=== PATIENT | female | born 1945 | race Caucasian/White ===

== ENCOUNTER → 2018-01-19 13:17 | Outpatient (CLI) | payer MEDICARE, OTHER, SELFPAY ==
--- NOTE | 2018-01-19 | DI.RAD.S_ITS ---
PROCEDURE: FL BARIUM SWALLOW W SPEECH INDICATIONS: DYSPHAGIA. Hoarseness of voice. History of gastroesophageal reflux. Occasional coughing fits. TECHNIQUE: Examination was conducted in conjunction with speech pathology per standard protocol. In the lateral projection, filming was performed of the patient swallowing. AP projection filming was also performed with patient swallowing. COMPARISON: [facility], , BARIUM SWALLOW, 11/09/2016, 9:54. FINDINGS: Function: The oral preparatory phase appears normal, with proper containment. The subsequent oral propulsive phase, pharyngeal phase, and esophageal phase of swallowing also appear normal with all proffered substances. No laryngotracheal penetration or aspiration. No pathologic vallecular pooling. Minimal vallecular and piriform sinus residue immediately cleared with subsequent swallows. Morphology: A small cricopharyngeal bar was identified. No strictures were identified. IMPRESSION: #1. 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 Clinical followup recommended. #2. No laryngeal penetration or tracheal aspiration visualized on this exam. Please see concurrent speech pathology report for further details. Dictated by: Mina Orlando M.D. on 01/19/2018 at 15:49 Approved by: Mina Orlando M.D. on 01/19/2018 at 15:53
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
== END ==
PROVIDERS: PCP Family Medicine; Visit Provider Otolaryngology Facial Plastic Surgery
DX: R13.10 Dysphagia, unspecified (principal); R49.0 Dysphonia; K21.9 Gastro-esophageal reflux disease without esophagitis; R05 Cough
CPT/HCPCS: 74230; 92611

== ENCOUNTER 2018-01-29 09:30 | Outpatient (RCR) | payer MEDICARE, OTHER, SELFPAY ==
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
== END 2018-10-05 10:52 | disposition home or self-care (01) ==
LOC: SP 09:30
PROVIDERS: PCP Family Medicine; Visit Provider Family Medicine
DX: R13.10 Dysphagia, unspecified (principal)
CPT/HCPCS: 92507; 92526; 92610

== ENCOUNTER → 2018-08-01 10:51 | Outpatient (CLI) | payer MEDICARE, OTHER, SELFPAY ==
[2018-08-01 12:38] LABS: Blood Urea Nitrogen 9 mg/dL (7-17); Calcium 9.8 mg/dL (8.4-10.2); Carbon Dioxide 30 mmol/L (22-32); Chloride 97 mmol/L (98-107); Estimated Glomerular Filt Rate > 60.0 mL/min (>60); Glucose 122 mg/dL (80-110); HEMOLYSIS < 15 (0-50); Potassium 4.7 mmol/L (3.4-5.1); Sodium 138 mmol/L (137-145)
== END ==
PROVIDERS: PCP Family Medicine; Visit Provider Surgery
DX: R19.00 Intra-abdominal and pelvic swelling, mass and lump, unspecified site (principal)
CPT/HCPCS: 36415; 80048

== ENCOUNTER → 2018-08-06 08:44 | Outpatient (CLI) | payer MEDICARE, OTHER, SELFPAY ==
--- NOTE | 2018-08-06 08:46 | DI.CT.S_ITS ---
PROCEDURE: CT ABDOMEN PELVIS W CON INDICATIONS: Lump Abdominal Wall TECHNIQUE: After the administration of oral and intravenous contrast, 5 mm thick sections acquired from the diaphragms to the symphysis. 5 mm thick coronal and sagittal reformats were performed. For radiation dose reduction, the following was used: automated exposure control, adjustment of mA and/or kV according to patient size. COMPARISON: [facility], CT, ABDOMEN/PELVIS WITH CONTRAST, 09/09/2015, 10:44. FINDINGS: Image quality: Excellent. ABDOMEN: Lung bases: Lung bases are clear. Heart size is normal. Solid organs: Liver is normal in size and enhancement. Gallbladder appears surgically absent. Biliary system is non-dilated. Pancreas enhances normally. Spleen is normal in size and enhancement. No adrenal nodules. Kidneys are normal in size and enhancement, without hydronephrosis. There are several small simple renal cortical cysts, water in density. Peritoneum and bowel: Stomach, small bowel, and colon loops are normal in caliber and wall thickness. No free fluid or air. There is a rounded mass within the cecum just above the ileocecal valve, measuring up to 2.1 x 1.9 cm in maximal axial dimension seen on series 2 image 37 potentially a polyp. Nodes and vessels: No retroperitoneal or mesenteric adenopathy. Aorta and inferior vena cava are normal in caliber. Miscellaneous: There is a fat containing right paramedian periumbilical ventral hernia presumably containing omental fat, seen passing through the body wall on series 2 image 40, with a subtle internal fat density extending into the subcutaneous fat to the right of midline, which correlates well with the clinical history provided.. PELVIS: Genitourinary: Bladder wall thickness is normal. Miscellaneous: No inguinal hernias or adenopathy. At the margin of the right external iliac artery there is a peripherally calcified centrally nonenhancing ovoid structure that measures up to 4.4 cm in maximal axial dimension exactly equivalent to the prior appearance in that area. Bones: No suspicious bony lesions. No vertebral body compression fractures. IMPRESSION: 1. There is an unexpected finding of a masslike structure within the cecum just above the ileocecal valve, measuring soft tissue in radiodensity and measuring approximately 1.9 x 2.1 cm in maximal axial dimension suspicious for representing an intraluminal polyp. This is in apposition to the wall of the cecum, and no intraluminal stool is seen in in this area. 2. 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 3. Just to the right of the umbilicus area is a body wall defect which measures only 1.3 cm in maximal dimension through which omental fat passes into the subcutaneous fat as the apparent cause for the clinically reported asymmetry palpable in that area. Currently incarceration or strangulation does not appear associated. Dictated by: Allen Flores M.D. on 08/06/2018 at 12:44 Approved by: Allen Flores M.D. on 08/06/2018 at 13:01
== END ==
PROVIDERS: PCP Family Medicine; Visit Provider Surgery
DX: R22.2 Localized swelling, mass and lump, trunk (principal); N28.1 Cyst of kidney, acquired; K63.9 Disease of intestine, unspecified; I70.8 Atherosclerosis of other arteries; K43.9 Ventral hernia without obstruction or gangrene; Z90.49 Acquired absence of other specified parts of digestive tract
CPT/HCPCS: 74177; Q9967

== ENCOUNTER 2018-10-01 06:53 | Day surgery (SDC) | payer MEDICARE, OTHER, SELFPAY ==
--- NOTE | 2018-10-01 | PATH_ITS ---
[facility] Accession Number: [id number] . 01 Material submitted: . PART A: colon - COLON POLYP AT 15 CM PART B: colon - COLON POLYP AT 80 CM PART C: colon - COLON POLYP AT 90 CM . 02 Diagnosis: A. Colon Polyp at 15 cm: Tubular adenoma; negative for high-grade dysplasia. . B. Colon Polyp at 80 cm: Tubulovillous adenoma (2.0 cm in greatest dimension); negative for high-grade dysplasia. . C. Colon Polyp at 90 cm: Tubular adenoma; negative for high-grade dysplasia. [facility]/10/02/2018 . 02 Electronically signed: . Fatmata Perdomo MD, Pathologist NPI- [id number] . 01 Gross description: . Part A: COLON POLYP AT 15 CM: Received in formalin are 2 fragment(s) of martinez, soft tissue measuring 0.4 x 0.4 x 0.3 cm to 0.6 x 0.5 x 0.5 cm which is entirely submitted and submitted entirely in 1 cassette(s) Part B: COLON POLYP AT 80 CM: Received in formalin is 1 fragment(s) of martinez, soft tissue measuring 2.0 x 1.5 x 1.5 cm which is serially sectioned and submitted entirely in 3 cassette(s) Part C: COLON POLYP AT 90 CM: Received in formalin is 1 fragment(s) of martinez, soft tissue measuring 0.4 x 0.3 x 0.2 cm which is entirely submitted and submitted entirely in 1 cassette(s) /[facility] /[facility] . 02 Pathologist provided ICD-10: K63.5 . 02 CPT . 840658, [id number], 140622 Performed at: [address], [facility] [place] [id number] MD Pillo Nath MD Phone: [phone] Performed at: 02 [facility] [address] [place] [id number] MD Aminah Rosa MD Phone: [phone]
--- NOTE | 2018-10-01 07:26 | PM.HP.1 ---
History of Present Illness Chief complaint: 17244 Narrative: Patient presents for colorectal screening. She had a previous colonoscopy approximately 5 years ago recalls a poly otherwise unremarkable.. On further history denies any recent gastrointestinal symptoms. No nausea, vomiting, abdominal pain, loss of appetite, unexplained weight loss, change in bowel habits, diarrhea, constipation, melena, hematochezia, or bright red blood per rectum. Patient History Medical History (Updated 10/01/18 @ 08:43 by Doyle Hernandez MD) Atrial fibrillation (Acute) Diverticulosis (Acute) Diabetes (Chronic) Surgical History (Updated 10/01/18 @ 08:43 by Doyle Hernandez MD) History of cholecystectomy (Acute) Family History Brother Hypertension Cancer Sister Cancer Social History marital status: household members: spouse Smoking Status: Never smoker substance use type: does not use Family & Social History Family History Brother Hypertension Cancer Sister Cancer Social History: household members spouse Tobacco & Substance use: Smoking Status Never smoker Meds Home Medications Medication Instructions Recorded Confirmed Type alprazolam 0.5 mg tablet 0.5 mg PO .prn tab 10/05/17 10/01/18 History apixaban 5 mg tablet 5 mg PO BID 10/05/17 10/01/18 History atorvastatin 10 mg tablet 10 mg PO DAILY 10/05/17 10/01/18 History cholecalciferol (vitamin D3) 1,000 1,000 unit PO DAILY 10/05/17 10/01/18 History unit capsule flecainide 100 mg tablet 100 mg PO Q12H 10/05/17 10/01/18 History lidocaine 5 % topical patch 3 patch TOP DAILY each 10/05/17 10/01/18 History magnesium oxide 500 mg capsule 500 mg PO BID cap 10/05/17 10/01/18 History metformin ER 500 mg 500 mg PO DAILY 10/05/17 10/01/18 History tablet,extended release 24 hr metoprolol succinate ER 50 mg 50 mg PO DAILY 10/05/17 10/01/18 History tablet,extended release 24 hr metronidazole 1 % topical gel 1 applictn TOP DAILY 10/05/17 10/01/18 History vitamin B12 1,000 mcg-folic acid lozenge SL each 10/05/17 08/22/18 History 400 mcg sublingual lozenge Allergies Allergy/AdvReac Type Severity Reaction Status Date / Time acetaminophen [From VICODIN] AdvReac Unknown Verified 10/01/18 07:52 amitriptyline [AMITRIPTYLINE] AdvReac Unknown Verified 10/01/18 07:52 amlodipine [From NORVASC] AdvReac Unknown Verified 10/01/18 07:52 aspirin [ASPIRIN] AdvReac Unknown Verified 10/01/18 07:52 baclofen [BACLOFEN] AdvReac Unknown Verified 10/01/18 07:52 celecoxib [From CELEBREX] AdvReac Unknown Verified 10/01/18 07:52 codeine [CODEINE] AdvReac Unknown Verified 10/01/18 07:52 cyclobenzaprine AdvReac Unknown Verified 10/01/18 07:52 [From FLEXERIL] diazepam [DIAZEPAM] AdvReac Unknown Verified 10/01/18 07:52 dicyclomine [DICYCLOMINE] AdvReac Unknown Verified 10/01/18 07:52 diphenhydramine AdvReac Unknown Verified 10/01/18 07:52 [DIPHENHYDRAMINE] gabapentin [From NEURONTIN] AdvReac Unknown Verified 10/01/18 07:52 guaifenesin [GUAIFENESIN] AdvReac Unknown Verified 10/01/18 07:52 hydrocodone [From VICODIN] AdvReac Unknown Verified 10/01/18 07:52 hydromorphone [From DILAUDID] AdvReac Unknown Verified 10/01/18 07:52 ibuprofen [IBUPROFEN] AdvReac Unknown Verified 10/01/18 07:52 lansoprazole [LANSOPRAZOLE] AdvReac Unknown Verified 10/01/18 07:52 ondansetron AdvReac Unknown Verified 10/01/18 07:52 [From ZOFRAN ( HYDROCHLORIDE)] oxytocin [OXYTOCIN] AdvReac Unknown Verified 10/01/18 07:52 paroxetine [From PAXIL] AdvReac Unknown Verified 10/01/18 07:52 pindolol [PINDOLOL] AdvReac Unknown Verified 10/01/18 07:52 pregabalin [PREGABALIN] AdvReac Unknown Verified 10/01/18 07:52 promethazine [From PHENERGAN] AdvReac Unknown Verified 10/01/18 07:52 pyridostigmine AdvReac Unknown Unverified 08/22/18 09:43 [From MESTINON] ranitidine [From ZANTAC] AdvReac Unknown Verified 10/01/18 07:52 tizanidine [TIZANIDINE] AdvReac Unknown Verified 10/01/18 07:52 tramadol [TRAMADOL] AdvReac Unknown Verified 10/01/18 07:52 TRAZADONE AdvReac Unknown Uncoded 10/01/18 07:52 KRYSTLE BASE AdvReac Unknown Uncoded 10/01/18 07:52 Review of Systems Review of Systems All systems reviewed & are unremarkable except as noted in HPI and below Exam Narrative Exam Narrative: General-adult female no acute distress, well nourished HEENT-moist mucous membranes, no scleral icterus Neck-supple with full range of motion, no lymphadenopathy Chest- no labored respirations, clear to auscultation bilaterally Cardiac-regular rate and rhythm Abdomen-soft, nontender, non distended Extremities-no edema, warm well perfused Neurological-alert and oriented x 3. No focal deficits Skin-normal temperature and turgor, no rashes or ulcers Assessment & Plan (1) Screening for colorectal cancer: Current visit: Yes Status: Acute Assessment & Plan narrative: Patient is requiring colorectal screening. Colonoscopy is recommended. Technical details were discussed. Risks, benefits, alternatives explained. Risks including but not limited to sedation, aspiration, bleeding, pain, missed lesion, incomplete examination, need for further radiographic studies, colonic perforation, need for major abdominal surgery, and all attendant risks major surgery were discussed at length. All questions were answered to their satisfaction, and they voiced understanding.
[2018-10-01 08:01] VITALS: BP 163/72; PULSE 86; RESP 14; TEMP 36.6; O2SAT 100; BMI 47.8
[2018-10-01] MEDS: SODIUM CHLORIDE 0.9% 1,000 ML 200 ML IV (08:09)
[2018-10-01] MEDS: fentaNYL 250 MCG/5 ML INJ IV (09:45)
[2018-10-01] MEDS: MIDAZOLAM 5 MG/5 ML VIAL IV (09:45)
[2018-10-01 10:00] VITALS: BP 138/56; PULSE 72; RESP 17; TEMP 36.3; O2SAT 98
--- NOTE | 2018-10-01 10:02 | PM.OP.ENDO ---
Operative Date/Time/Diagnoses Date of procedure: 10/01/18 Time of procedure: 10:02 Pre-op diagnosis: screening colonoscopy. Last 5 yrs ago with polyp Post-op diagnosis: other (polyps) Procedure & Clinicians Study performed: colonoscopy Same procedure as scheduled: Yes Indications: screening colonoscopy previously polyp 5 yrs ago Surgeon: Doyle Hernandez Procedure Notes SCOAP/Timeout: performed Procedure in detail: A digital rectal exam was performed and was normal. The scope was carefully inserted into the rectum and advanced to the colon. A approximately 2 cm polyp was identified at 15 cm from the anal verge which was hot snared and removed. Site was found to be hemostatic. The colonoscope was then advanced remainder of the colon. At 80 cm there was a size polyp of several cm that was hot snared and then removed with the basket. I injected 1cc of ink at this site. The colonoscope was then reinserted and we reached the ileocecal valve. The scope was then carefully withdrawn. The remainder of the colon was notable for hemostasis at the previous biopsy sites. There was diverticulosis. In the final polyp was identified at 90 cm of small less than 1 cm which was biopsied. The scope was retroflexed within the rectum demonstrated grade 1 internal hemorrhoids. Scope was then withdrawn Scope withdrawal time: 9 Sedation minutes: 62 Findings: diverticulosis and polyp Specimen(s): other (polyp 15 cm, polyp 80 cm, polp 90cm) Complications: none Impression: concerning polyp at 80 cm Recommendations: Will call with biopsy results Disposition: same day surgery
[2018-10-01 10:05] VITALS: BP 133/54; PULSE 69; RESP 17; O2SAT 97
--- NOTE | 2018-10-01 10:17 | SUR.PHASEII ---
Dr. Hernandez spoke with the patient and her spouse, told her that she had a couple of large polyps and that he is concerned/tabooed one. Glasses returned to patient by spouse. She desires to rest a few minutes before preparing to leave.
[2018-10-01 10:20] VITALS: BP 143/68; PULSE 74; RESP 14; TEMP 36.9; O2SAT 97
--- NOTE | 2018-10-01 10:39 | SUR.PHASEII ---
States that she feels ready to go home. IV dc'd instructions reviewed. Her spouse assisting with dressing.
[2018-10-01 10:54] VITALS: BP 163/71; PULSE 73; RESP 15; TEMP 36.3; O2SAT 98
--- NOTE | 2018-10-01 13:48 | SUR.PHASEII ---
1058 To car in W/C by volunteer. Toleration PO well, resp unlabored. Stable, no questions, concerns.
== END 2018-10-01 10:58 | disposition home or self-care (01) ==
PROVIDERS: PCP Family Medicine; Visit Provider Surgery
PROC: 0DJD8ZZ Inspection of Lower Intestinal Tract, Via Natural or Artificial Opening Endoscopic (ICD-10-PCS; CPT 45378; principal; 2018-10-01 08:45)
DX: Z86.010 Personal history of colon polyps (principal); D12.6 Benign neoplasm of colon, unspecified; K57.30 Diverticulosis of large intestine without perforation or abscess without bleeding; K64.0 First degree hemorrhoids; I48.91 Unspecified atrial fibrillation; E11.9 Type 2 diabetes mellitus without complications; Z79.84 Long term (current) use of oral hypoglycemic drugs
CPT/HCPCS: 45385; 45381; 45380; 88305; 99152; 99153; J2250; J3010

== ENCOUNTER 2018-10-10 09:56 | Emergency (ER) | payer MEDICARE, OTHER, SELFPAY ==
[2018-10-10 10:33] VITALS: BP 150/84; PULSE 67; RESP 18; TEMP 36.6; O2SAT 97; BMI 47.6
[2018-10-10 10:44] LABS: Add Manual Diff / Slide Review NO; Basophils Absolute Auto 0 /uL (0-100); Basophils Percent Auto 0.2 % (0-2); Eosinophils Absolute Auto 100 /uL (0-450); Eosinophils Percent Auto 0.7 % (2-4); Hematocrit 34.2 % (36-46); Hemoglobin 11.3 g/dL (12.0-16.0); Lymphocytes Absolute Auto 1600 /uL (1100-4500); Lymphocytes Percent Auto 12.9 % (25-40); Mean Corpuscular HGB Conc 33.1 % (30-36); Mean Corpuscular Hemoglobin 27.6 PG (26-34); Mean Corpuscular Volume 83.4 fL (80-100); Monocytes Absolute Auto 500 /uL (0-900); Neutrophils Absolute Auto 10300 /uL (1500-7000); Neutrophils Percent Auto 82.2 % (50-75); Platelet Count 307 X10^3/uL (150-400); White Blood Cell Count 12.6 X10^3/uL (4.5-11.0)
[2018-10-10 10:45] LABS: INR 1.3 (0.9-1.3); Prothrombin Time 15.2 SECONDS (10.1-12.7)
[2018-10-10 10:48] LABS: PTT Partial Thromboplastin Tim 41 SECONDS (26.4-36.2)
[2018-10-10 10:51] LABS: Alanine Aminotransferase 7 IU/L (9-52); Albumin 4.2 g/dL (3.5-5.0); Albumin Globulin Ratio 1.2 (1.0-2.8); Alkaline Phosphatase 96 U/L (38-126); Aspartate Aminotransferase 19 IU/L (14-36); Bilirubin Total 0.5 mg/dL (0.2-1.3); Blood Urea Nitrogen 18 mg/dL (7-17); Calcium 9.5 mg/dL (8.4-10.2); Carbon Dioxide 26 mmol/L (22-32); Chloride 97 mmol/L (98-107); Estimated Glomerular Filt Rate > 60.0 mL/min (>60); Globulin 3.5 g/dL (1.7-4.1); Glucose 155 mg/dL (80-110); HEMOLYSIS 15 (0-50); Potassium 4.2 mmol/L (3.4-5.1); Sodium 137 mmol/L (137-145); Total Protein 7.7 g/dL (6.3-8.2)
[2018-10-10 11:00] VITALS: BP 139/46; PULSE 64; RESP 11; O2SAT 99
--- NOTE | 2018-10-10 11:40 | PC.NURSE ---
received report from [employer]cant[facility]. pt resting in bed. NAD. connected to cardiac monitoring. NSR 90's. reports she had colonoscopy 10/01 with 3 polyps removed. starting to have gross wilma red blood in stool by 10/06. Denies pain or abd discomfort. RR even and mildly labored with exertion. Yellow socks placed on pt and assisted to BR. ambulated with steady gait. RN witnessed gross about of wilma red blood in toilet with small amt clots. Stool occult charted as positive, made aware. pt type and screened. reports h/o afib and has started to take her eloquis again post procedure. H/H WNL at this time. aware. Pt skin PWD.
[2018-10-10 12:00] VITALS: BP 129/51; PULSE 67; RESP 19; O2SAT 100
[2018-10-10 12:30] VITALS: BP 102/36; PULSE 84; RESP 16; O2SAT 99
--- NOTE | 2018-10-10 12:43 | ED.GIBLEED ---
HPI - GI Bleed General Chief complaint: GI Bleed Stated complaint: rectal bleeding Time Seen by Provider: 10/10/18 12:26 Source: patient Mode of arrival: ambulatory Limitations: no limitations History of Present Illness HPI Narrative: 72-year-old female comes in complaining of bright red blood. Patient had a colonoscopy for colorectal cancer screening on 10/01/2018. Patient states they saw 3 polyps and removed them. She states she started having some smelly brownish stool on the . Patient states that she started having bright red blood on Monday, yesterday. She has not any abdominal pain. She does not feel like she is going to pass out she has felt occasionally little lightheaded but states is very mild. No chest pain, she has felt a little bit tired. She had some nausea earlier in the week but none recently. She has not noticed any melena in her stool. She had about 10 episodes of bowel movements with small to moderate amount of blood with no large clots. The patient states that they did remove 3 polyps which was confirmed in the medical record. She does take Eliquis, she does have a cardiac history, diabetes and fibromyalgia. Related Data Home Medications Medication Instructions Recorded Confirmed alprazolam 0.5 mg tablet 0.5 mg PO .ONCE tab 10/05/17 10/10/18 apixaban 5 mg tablet 5 mg PO BID 10/05/17 10/10/18 atorvastatin 10 mg tablet 10 mg PO DAILY 10/05/17 10/10/18 cholecalciferol (vitamin D3) 1,000 1,000 unit PO DAILY 10/05/17 10/10/18 unit capsule flecainide 100 mg tablet 100 mg PO Q12H 10/05/17 10/10/18 lidocaine 5 % topical patch 3 patch TOP DAILY each 10/05/17 10/10/18 magnesium oxide 500 mg capsule 500 mg PO TID cap 10/05/17 10/10/18 metformin 500 mg tablet,extended 1,000 mg PO BID 10/05/17 10/10/18 release 24 hr metoprolol succinate 50 mg 50 mg PO DAILY 10/05/17 10/10/18 tablet,extended release 24 hr metronidazole 1 % topical gel 1 applictn TOP DAILY 10/05/17 10/10/18 vitamin [id number] acid 1 giancarlo SUBLINGUAL DAILY 10/10/18 10/10/18 Allergies Allergy/AdvReac Type Severity Reaction Status Date / Time dicloxacillin Allergy Unknown Verified 10/10/18 12:25 acetaminophen [From VICODIN] AdvReac Unknown Verified 10/10/18 10:33 amitriptyline [AMITRIPTYLINE] AdvReac Unknown Verified 10/10/18 10:33 amlodipine [From NORVASC] AdvReac Unknown Verified 10/10/18 10:33 aspirin [ASPIRIN] AdvReac Unknown Verified 10/10/18 10:33 baclofen [BACLOFEN] AdvReac Unknown Verified 10/10/18 10:33 celecoxib [From CELEBREX] AdvReac Unknown Verified 10/10/18 10:33 codeine [CODEINE] AdvReac Unknown Verified 10/10/18 10:33 cyclobenzaprine AdvReac Unknown Verified 10/10/18 10:33 [From FLEXERIL] diazepam [DIAZEPAM] AdvReac Unknown Verified 10/10/18 10:33 dicyclomine [DICYCLOMINE] AdvReac Unknown Verified 10/10/18 10:33 diphenhydramine AdvReac Unknown Verified 10/10/18 10:33 [DIPHENHYDRAMINE] gabapentin [From NEURONTIN] AdvReac Unknown Verified 10/10/18 10:33 guaifenesin [GUAIFENESIN] AdvReac Unknown Verified 10/10/18 10:33 hydrocodone [From VICODIN] AdvReac Unknown Verified 10/10/18 10:33 hydromorphone [From DILAUDID] AdvReac Unknown Verified 10/10/18 10:33 ibuprofen [IBUPROFEN] AdvReac Unknown Verified 10/10/18 10:33 lansoprazole [LANSOPRAZOLE] AdvReac Unknown Verified 10/10/18 10:33 ondansetron AdvReac Unknown Verified 10/10/18 10:33 [From ZOFRAN ( HYDROCHLORIDE)] oxytocin [OXYTOCIN] AdvReac Unknown Verified 10/10/18 10:33 paroxetine [From PAXIL] AdvReac Unknown Verified 10/01/18 07:52 pindolol [PINDOLOL] AdvReac Unknown Verified 10/01/18 07:52 pregabalin [PREGABALIN] AdvReac Unknown Verified 10/01/18 07:52 promethazine [From PHENERGAN] AdvReac Unknown Verified 10/01/18 07:52 pyridostigmine AdvReac Unknown Unverified 08/22/18 09:43 [From MESTINON] ranitidine [From ZANTAC] AdvReac Unknown Verified 10/01/18 07:52 tizanidine [TIZANIDINE] AdvReac Unknown Verified 10/01/18 07:52 tramadol [TRAMADOL] AdvReac Unknown Verified 10/01/18 07:52 TRAZADONE AdvReac Unknown Uncoded 10/01/18 07:52 KRYSTLE BASE AdvReac Unknown Uncoded 10/01/18 07:52 Review of Systems Review of Systems ROS Unobtainable: All systems reviewed & are unremarkable except as noted in HPI and below PFSH Medical History Atrial fibrillation (Acute) Diabetes (Chronic) Diverticulosis (Acute) Surgical History History of cholecystectomy (Acute) Family History Brother Hypertension Cancer Sister Cancer Social History marital status: household members: spouse Smoking Status: Never smoker substance use type: does not use Family History Brother Hypertension Cancer Sister Cancer Social History marital status: household members: spouse Smoking Status: Never smoker substance use type: does not use Exam Narrative Exam Narrative: GENERAL: Alert and oriented x three, obese female in no acute distress. HEENT: Head normocephalic, atraumatic, EOMI, pupils reactive, face symmetric, moist mucous membranes NECK: Supple, full range of motion CARDIOVASCULAR: Regular rate and rhythm without murmurs, rubs or gallops. RESPIRATORY: Breath sounds equal bilaterally, no wheezes rales or rhonchi. ABDOMEN: Soft, nontender. Normoactive bowel sounds all 4 quadrants. No guarding or rebound, rigidity, no mass. Patient had bright red blood in the toilet in the emergency department. : No CVA tenderness EXTREMITIES: Normal range of motion, no clubbing or edema. Neurovascularly intact NEUROLOGICAL: Cranial nerves II through XII grossly intact. Moving all extremities SKIN: Warm, dry, no petechiae, no rashes or lesions. Initial Vital Signs Initial Vital Signs: Vital Signs Temperature 97.8 F 10/10/18 10:33 Pulse Rate 67 10/10/18 10:33 Respiratory Rate 18 10/10/18 10:33 Blood Pressure 150/84 H 10/10/18 10:33 Pulse Oximetry 97 10/10/18 10:33 Course Orders Ordered: ED Orders 10/10/18 12:50 Hemoglobin and Hematocrit Stat Vital Signs Vital signs: Vital Signs - 8 hr 10/10/18 12:00 10/10/18 12:30 10/10/18 13:06 Pulse Rate 67 84 Pulse Rate [Orthostatic Lying] 58 L Pulse Rate [Orthostatic Sitting] 72 Pulse Rate [Orthostatic Standing] 78 Respiratory Rate 19 16 Blood Pressure [Orthostatic Lying] 114/51 L Blood Pressure [Orthostatic Sitting] 138/52 L Blood Pressure [Orthostatic Standing] 133/73 Blood Pressure [Right Arm] 129/51 L 102/36 L Pulse Oximetry 100 99 MDM - GI Bleed Lab Data Attestation: I reviewed the patient's lab results. Result diagrams: 10/10/18 12:50 10/10/18 10:30 Labs: Lab Results 10/10/18 10/10/18 10/10/18 Range/Units 10:30 10:30 10:30 WBC 12.6 H (4.5-11.0) X10^3/uL RBC 4.10 (4.0-5.2) X10^6/uL Hgb 11.3 L (12.0-16.0) g/dL Hct 34.2 L (36-46) % MCV 83.4 (80-100) fL MCH 27.6 (26-34) PG MCHC 33.1 (30-36) % RDW 14.0 (11.6-14.8) % Plt Count 307 (150-400) X10^3/uL Neut % (Auto) 82.2 H (50-75) % Lymph % (Auto) 12.9 L (25-40) % [place] % (Auto) 4.0 (3-14) % Eos % (Auto) 0.7 L (2-4) % Baso % (Auto) 0.2 (0-2) % Neut # (Auto) 91644 H (4669-9434) /uL Lymph # (Auto) 1600 (2677-0392) /uL [place] # (Auto) 500 (0-900) /uL Eos # (Auto) 100 (0-450) /uL Baso # (Auto) 0 (0-100) /uL PT 15.2 H (10.1-12.7) SECONDS INR 1.3 (0.9-1.3) APTT 41 H (26.4-36.2) SECONDS Sodium 137 (137-145) mmol/L Potassium 4.2 (3.4-5.1) mmol/L Chloride 97 L (98-107) mmol/L Carbon Dioxide 26 (22-32) mmol/L BUN 18 H (7-17) mg/dL Creatinine 0.60 (0.52-1.04) mg/dL Estimated GFR > 60.0 (>60) mL/min BUN/Creatinine Ratio 30.0 H (6-22) Glucose 155 H (80-110) mg/dL Calcium 9.5 (8.4-10.2) mg/dL Total Bilirubin 0.5 (0.2-1.3) mg/dL AST 19 (14-36) IU/L ALT 7 L (9-52) IU/L Alkaline Phosphatase 96 (38-126) U/L Total Protein 7.7 (6.3-8.2) g/dL Albumin 4.2 (3.5-5.0) g/dL Globulin 3.5 (1.7-4.1) g/dL Albumin/Globulin Ratio 1.2 (1.0-2.8) 10/10/18 Range/Units 12:50 WBC (4.5-11.0) X10^3/uL RBC (4.0-5.2) X10^6/uL Hgb 10.4 L (12.0-16.0) g/dL Hct 31.3 L (36-46) % MCV (80-100) fL MCH (26-34) PG MCHC (30-36) % RDW (11.6-14.8) % Plt Count (150-400) X10^3/uL Neut % (Auto) (50-75) % Lymph % (Auto) (25-40) % [place] % (Auto) (3-14) % Eos % (Auto) (2-4) % Baso % (Auto) (0-2) % Neut # (Auto) (8191-7597) /uL Lymph # (Auto) (7917-8634) /uL [place] # (Auto) (0-900) /uL Eos # (Auto) (0-450) /uL Baso # (Auto) (0-100) /uL PT (10.1-12.7) SECONDS INR (0.9-1.3) APTT (26.4-36.2) SECONDS Sodium (137-145) mmol/L Potassium (3.4-5.1) mmol/L Chloride (98-107) mmol/L Carbon Dioxide (22-32) mmol/L BUN (7-17) mg/dL Creatinine (0.52-1.04) mg/dL Estimated GFR (>60) mL/min BUN/Creatinine Ratio (6-22) Glucose (80-110) mg/dL Calcium (8.4-10.2) mg/dL Total Bilirubin (0.2-1.3) mg/dL AST (14-36) IU/L ALT (9-52) IU/L Alkaline Phosphatase (38-126) U/L Total Protein (6.3-8.2) g/dL Albumin (3.5-5.0) g/dL Globulin (1.7-4.1) g/dL Albumin/Globulin Ratio (1.0-2.8) Point of Care Testing Stool Occult Blood Positive MDM Narrative Medical decision making narrative: Patient has painless bright red blood after colonoscopy on the while taking Eliquis. I spoke with the on-call surgeon, Dr. Garcia who recommend stopping the Eliquis and having her follow up. At patient's hematocrit was 34 we did do a repeat that was 31 but patient has been able to ambulate back and forth to the bathroom without issue. Orthostatics show her heart rate increased by 20 points but blood pressure also increased. Patient had 1 episode of hypotension while she was resting. Otherwise she has been asymptomatic in the department except for 2 or 3 episodes of bright red blood. Patient feels comfortable returning home and following up she has ambulated in the department several times without issue. Discharge Plan Departure Patient Disposition: Home Clinical Impression: BRBPR (bright red blood per rectum) Discharge Date/Time: 10/10/18 14:02 Instructions: Gastrointestinal Bleeding Activity Restrictions/Additional Instructions: Follow up with your your surgical team in the next 3-5 days. Stop your Eliquis while you are actively bleeding. You may continue your other home medications as prescribed. Return to the emergency department for new or worsening symptoms, increasing bright red blood from rectum, abdominal pain, large clots, if you feel like going to pass out, new chest pain, new shortness of breath, persistent nausea or, new swelling in her lower extremities or other new or concerning symptoms. Prescriptions: No Action alprazolam 0.5 mg tablet 0.5 mg PO .ONCE RF: 0 apixaban 5 mg tablet 5 mg PO BID RF: 0 atorvastatin 10 mg tablet 10 mg PO DAILY RF: 0 cholecalciferol (vitamin D3) 1,000 unit capsule 1,000 unit PO DAILY RF: 0 flecainide 100 mg tablet 100 mg PO Q12H RF: 0 metformin [Glucophage XR] 500 mg tablet extended release 24 hr 1,000 mg PO BID RF: 0 lidocaine [Lidoderm] 5 % adhesive patch,medicated 3 patch TOP DAILY RF: 0 magnesium oxide 500 mg capsule 500 mg PO TID RF: 0 metoprolol succinate 50 mg tablet extended release 24 hr 50 mg PO DAILY RF: 0 metronidazole [Metrogel] 1 % gel 1 applictn TOP DAILY RF: 0 vitamin [id number] acid 1,000-400 mcg Lozenge 1 giancarlo SUBLINGUAL DAILY RF: 0 Referrals: Daniel Bob MD [Primary Care Provider] - Doyle Hernandez MD [Physician] -
[2018-10-10 13:00] LABS: Hematocrit 31.3 % (36-46); Hemoglobin 10.4 g/dL (12.0-16.0)
[2018-10-10 13:06] VITALS: BP 114/51; BP 133/73; BP 138/52; PULSE 58; PULSE 72; PULSE 78
--- NOTE | 2018-10-10 14:00 | PC.NURSE ---
IV dc'd. Pt DC'd to home abulated out of ed with steady gait. advised on signs and sx of when to return and verbalized understanding.
== END 2018-10-10 14:02 | disposition home or self-care (01) ==
PROVIDERS: Internal Medicine; Emergency Provider Emergency Medicine; PCP Family Medicine
DX: K62.5 Hemorrhage of anus and rectum (principal)
CPT/HCPCS: 36415; 36591; 80053; 82272; 85014; 85018; 85025; 85610; 85730; 93005; 99283; 99284

== ENCOUNTER 2020-01-02 11:53 | Inpatient (IN) | payer MEDICARE, OTHER, SELFPAY ==
[2020-01-02] VITALS (17 sets, daily range): BP systolic 144–216; BP diastolic 65–91; PULSE 58–86; RESP 14–39; TEMP 36.2–36.6; O2SAT 97–100; BMI 48.9; BMI 48.2
--- NOTE | 2020-01-02 12:44 | PC.NURSE ---
3 unsuccessful IV attempts from this RN
--- NOTE | 2020-01-02 14:02 | PC.NURSE ---
Assisted pt up to [facility]. Pt had large watery stool, no bright red blood visualized. Foul smelling. Guiac positive.
--- NOTE | 2020-01-02 14:13 | PC.NURSE ---
Dr Rachel at bedside to place US guided IV. Lab at bedside to draw labs
[2020-01-02 14:30] LABS: Add Manual Diff / Slide Review NO; Basophils Absolute Auto 0 /uL (0-100); Basophils Percent Auto 0.2 % (0-2); Eosinophils Absolute Auto 100 /uL (0-450); Eosinophils Percent Auto 0.8 % (2-4); Hematocrit 34.1 % (36-46); Hemoglobin 11.2 g/dL (12.0-16.0); Lymphocytes Absolute Auto 1200 /uL (1100-4500); Lymphocytes Percent Auto 10.8 % (25-40); Mean Corpuscular Hemoglobin 27.3 PG (26-34); Mean Corpuscular Volume 82.6 fL (80-100); Monocytes Absolute Auto 400 /uL (0-900); Monocytes Percent Auto 4.1 % (3-14); Neutrophils Absolute Auto 9200 /uL (1500-7000); Neutrophils Percent Auto 84.1 % (50-75); Platelet Count 299 X10^3/uL (150-400); Red Blood Cell Count 4.12 X10^6/uL (4.0-5.2); Red Cell Distribution Width 14.4 % (11.6-14.8); White Blood Cell Count 10.9 X10^3/uL (4.5-11.0)
[2020-01-02 14:37] LABS: INR 1.4 (0.9-1.3); Prothrombin Time 16.1 SECONDS (10.1-12.7)
[2020-01-02 14:39] LABS: PTT Partial Thromboplastin Tim 46 SECONDS (26.4-36.2)
[2020-01-02 14:45] LABS: Alanine Aminotransferase 14 IU/L (<35); Albumin 4.4 g/dL (3.5-5.0); Albumin Globulin Ratio 1.1 (1.0-2.8); Alkaline Phosphatase 120 U/L (38-126); Aspartate Aminotransferase 27 IU/L (14-36); BUN Creatinine Ratio 11.4 (6-22); Bilirubin Total 0.6 mg/dL (0.2-1.3); Blood Urea Nitrogen 8 mg/dL (7-17); Calcium 9.7 mg/dL (8.4-10.2); Carbon Dioxide 28 mmol/L (22-32); Chloride 99 mmol/L (98-107); Estimated Glomerular Filt Rate > 60.0 mL/min (>60); Globulin 3.9 g/dL (1.7-4.1); Glucose 121 mg/dL (80-110); HEMOLYSIS < 15 (0-50); Lactate (Lactic Acid) 1.8 mmol/L (0.7-2.1); Sodium 134 mmol/L (137-145); Total Protein 8.3 g/dL (6.3-8.2)
--- NOTE | 2020-01-02 14:57 | ED.GIBLEED ---
HPI - GI Bleed General Chief complaint: GI Bleed Stated complaint: Bleeding from rectum-x4 days Time Seen by Provider: 01/02/20 12:35 Source: patient Mode of arrival: Ambulatory Limitations: no limitations History of Present Illness HPI Narrative: Patient is a 74-year-old female history of atrial fibrillation on Eliquis presenting with rectal bleeding ongoing for least the last 4 days. States it started out small but has progressively gotten bigger she in fact has had a very large bloody bowel movement in the ED. She is hemodynamically stable in fact she is hypertensive. She denies any dizziness slightly lightheadedness or shortness of breath. She does have a Zio patch as well which was placed today. She has no abdominal cramping. Related Data Home Medications Medication Instructions Recorded Confirmed apixaban 5 mg tablet 5 mg PO BID 10/05/17 01/02/20 atorvastatin 10 mg tablet 10 mg PO DAILY 10/05/17 01/02/20 cholecalciferol (vitamin D3) 25 1,000 unit PO DAILY 10/05/17 01/02/20 mcg (1,000 unit) capsule flecainide 100 mg tablet 50 mg PO Q12H 10/05/17 01/02/20 lidocaine 5 % topical patch 3 patch TOP DAILY each 10/05/17 01/02/20 magnesium oxide 500 mg capsule 1,000 mg PO TID cap 10/05/17 01/02/20 metformin 500 mg tablet,extended 1,000 mg PO BID 10/05/17 01/02/20 release 24 hr metoprolol succinate 50 mg 25 mg PO DAILY 10/05/17 01/02/20 tablet,extended release 24 hr metronidazole 1 % topical gel 1 applictn TOP DAILY 10/05/17 01/02/20 vitamin D12-ywfrw acid 1 giancarlo SUBLINGUAL DAILY 10/10/18 01/02/20 lisinopril 10 mg BID 01/02/20 01/02/20 Allergies Allergy/AdvReac Type Severity Reaction Status Date / Time dicloxacillin Allergy Unknown Verified 01/02/20 12:07 acetaminophen [From VICODIN] AdvReac Unknown Verified 01/02/20 12:07 amitriptyline [AMITRIPTYLINE] AdvReac Unknown Verified 01/02/20 12:07 amlodipine [From NORVASC] AdvReac Unknown Verified 01/02/20 12:07 aspirin [ASPIRIN] AdvReac Unknown Verified 01/02/20 12:07 baclofen [BACLOFEN] AdvReac Unknown Verified 01/02/20 12:07 celecoxib [From CELEBREX] AdvReac Unknown Verified 01/02/20 12:07 codeine [CODEINE] AdvReac Unknown Verified 01/02/20 12:07 cyclobenzaprine AdvReac Unknown Verified 01/02/20 12:07 [From FLEXERIL] diazepam [DIAZEPAM] AdvReac Unknown Verified 01/02/20 12:07 dicyclomine [DICYCLOMINE] AdvReac Unknown Verified 01/02/20 12:07 diphenhydramine AdvReac Unknown Verified 01/02/20 12:07 [DIPHENHYDRAMINE] gabapentin [From NEURONTIN] AdvReac Unknown Verified 01/02/20 12:07 guaifenesin [GUAIFENESIN] AdvReac Unknown Verified 01/02/20 12:07 hydrocodone [From VICODIN] AdvReac Unknown Verified 01/02/20 12:07 hydromorphone [From DILAUDID] AdvReac Unknown Verified 01/02/20 12:07 ibuprofen [IBUPROFEN] AdvReac Unknown Verified 01/02/20 12:07 lansoprazole [LANSOPRAZOLE] AdvReac Unknown Verified 01/02/20 12:07 ondansetron AdvReac Unknown Verified 01/02/20 12:07 [From ZOFRAN ( HYDROCHLORIDE)] oxytocin [OXYTOCIN] AdvReac Unknown Verified 01/02/20 12:07 paroxetine [From PAXIL] AdvReac Unknown Verified 01/02/20 12:07 pindolol [PINDOLOL] AdvReac Unknown Verified 01/02/20 12:07 pregabalin [PREGABALIN] AdvReac Unknown Verified 01/02/20 12:07 promethazine [From PHENERGAN] AdvReac Unknown Verified 01/02/20 12:07 pyridostigmine AdvReac Unknown Verified 01/02/20 12:07 [From MESTINON] ranitidine [From ZANTAC] AdvReac Unknown Verified 01/02/20 12:07 tizanidine [TIZANIDINE] AdvReac Unknown Verified 01/02/20 12:07 tramadol [TRAMADOL] AdvReac Unknown Verified 01/02/20 12:07 TRAZADONE AdvReac Unknown Uncoded 10/18/18 09:12 KRYSTLE BASE AdvReac Unknown Uncoded 10/18/18 09:12 Review of Systems Review of Systems Narrative: GENERAL: Denies chills, fatigue, malaise, fever, sweats, travel HEENT: Denies sinus pain, ear pain, sore throat, difficulty swallowing, neck pain RESPIRATORY: Denies dyspnea, cough, wheezing, hemoptysis, sputum. CARDIOVASCULAR: Denies chest pain, palpitations, orthopnea, edema GASTROINTESTINAL: See HPI : Denies dysuria, frequency, incontinence, hematuria, urinary retention, flank pain. MUSCULOSKELETAL: Denies weakness, joint pain, or bony pain SKIN: No rash, no erythema, no pruritus NEUROLOGIC: Denies weakness, dizziness, headache, numbness, change in speech, confusion PSYCHIATRIC: No concerning psychosocial issues. 12 point review of systems is negative except for those stated above and HPI Patient History Medical History (Updated 01/02/20 @ 18:29 by Dary Rachel DO) Atrial fibrillation Diabetes Diverticulosis Surgical History History of cholecystectomy Family History Brother Hypertension Cancer Sister Cancer Social History marital status: household members: spouse Smoking Status: Never smoker alcohol intake: never substance use type: does not use Smoking Status: Never smoker Substance Use Type: does not use Exam Initial Vital Signs Initial Vital Signs: Vital Signs Pulse Rate 86 01/02/20 12:03 Pulse Oximetry 99 01/02/20 12:03 GENERAL: Well-appearing, well-nourished and in no acute distress. HEENT: Head atraumatic,EOMI, pupils reactive, face symmetric, moist mucous membranes CARDIOVASCULAR: Regular rate and rhythm without murmurs, rubs or gallops. RESPIRATORY: Breath sounds equal bilaterally, no wheezes rales or rhonchi. ABDOMEN: Soft, nontender. Normoactive bowel sounds all 4 quadrants. No guarding or rebound. RECTAL: Hemoccult-positive, no hemorrhoids, nontender : No CVA tenderness EXTREMITIES: Normal range of motion, no clubbing or edema. Neurovascularly intact NEUROLOGICAL: Alert and oriented x4.Normal gait and speech. SKIN: Warm, dry, no laceration, no petechiae, no rashes or lesions. Course Orders Ordered: ED Orders 01/02/20 12:37 EKG-12 Lead Stat 01/02/20 14:19 Complete Blood Count AUTO DIFF Stat Comprehensive Metabolic Panel Stat Lactate (Lactic Acid) Stat Partial Thromboplastin Time Stat Prothrombin Time INR Stat Type and Screen Stat Influenza Virus Vaccine (Influenza Hd Vaccine 0.7 Ml Syringe) 0.7 ml IM .ONCE ONE Stop: 01/03/20 09:01 Vital Signs Vital signs: Vital Signs - 8 hr 01/02/20 12:03 01/02/20 12:05 01/02/20 12:06 Temperature Pulse Rate 86 85 81 Respiratory Rate 17 Blood Pressure 216/91 H 200/85 H Pulse Oximetry 99 100 100 01/02/20 12:07 01/02/20 12:13 01/02/20 12:30 Temperature 97.8 F Pulse Rate 78 76 76 Respiratory Rate 18 17 14 Blood Pressure 200/85 H 166/72 H Pulse Oximetry 100 99 99 01/02/20 13:00 01/02/20 13:30 01/02/20 14:00 Temperature Pulse Rate 75 72 72 Respiratory Rate 18 17 20 Blood Pressure Pulse Oximetry 100 100 01/02/20 14:25 01/02/20 14:30 01/02/20 15:00 Temperature Pulse Rate 70 69 70 Respiratory Rate 17 19 20 Blood Pressure 154/67 H 151/66 H 151/67 H Pulse Oximetry 100 99 99 MDM - GI Bleed Lab Data Attestation: I reviewed the patient's lab results. Result diagrams: 01/02/20 14:19 01/02/20 14:19 Labs: Lab Results 01/02/20 01/02/20 01/02/20 Range/Units 14:19 14:19 14:19 WBC 10.9 (4.5-11.0) X10^3/uL RBC 4.12 (4.0-5.2) X10^6/uL Hgb 11.2 L (12.0-16.0) g/dL Hct 34.1 L (36-46) % MCV 82.6 (80-100) fL MCH 27.3 (26-34) PG MCHC 33.0 (30-36) % RDW 14.4 (11.6-14.8) % Plt Count 299 (150-400) X10^3/uL Neut % (Auto) 84.1 H (50-75) % Lymph % (Auto) 10.8 L (25-40) % [place] % (Auto) 4.1 (3-14) % Eos % (Auto) 0.8 L (2-4) % Baso % (Auto) 0.2 (0-2) % Neut # (Auto) 9200 H (7289-6692) /uL Lymph # (Auto) 1200 (4777-9600) /uL [place] # (Auto) 400 (0-900) /uL Eos # (Auto) 100 (0-450) /uL Baso # (Auto) 0 (0-100) /uL PT 16.1 H (10.1-12.7) SECONDS INR 1.4 H (0.9-1.3) APTT 46 H D (26.4-36.2) SECONDS Sodium (137-145) mmol/L Potassium (3.4-5.1) mmol/L Chloride (98-107) mmol/L Carbon Dioxide (22-32) mmol/L BUN (7-17) mg/dL Creatinine (0.52-1.04) mg/dL Estimated GFR (>60) mL/min BUN/Creatinine Ratio (6-22) Glucose (80-110) mg/dL Lactate 1.8 (0.7-2.1) mmol/L Calcium (8.4-10.2) mg/dL Total Bilirubin (0.2-1.3) mg/dL AST (14-36) IU/L ALT (<35) IU/L Alkaline Phosphatase (38-126) U/L Total Protein (6.3-8.2) g/dL Albumin (3.5-5.0) g/dL Globulin (1.7-4.1) g/dL Albumin/Globulin Ratio (1.0-2.8) Blood Type Antibody Screen 01/02/20 01/02/20 Range/Units 14:19 14:19 WBC (4.5-11.0) X10^3/uL RBC (4.0-5.2) X10^6/uL Hgb (12.0-16.0) g/dL Hct (36-46) % MCV (80-100) fL MCH (26-34) PG MCHC (30-36) % RDW (11.6-14.8) % Plt Count (150-400) X10^3/uL Neut % (Auto) (50-75) % Lymph % (Auto) (25-40) % [place] % (Auto) (3-14) % Eos % (Auto) (2-4) % Baso % (Auto) (0-2) % Neut # (Auto) (9150-9938) /uL Lymph # (Auto) (1775-4770) /uL [place] # (Auto) (0-900) /uL Eos # (Auto) (0-450) /uL Baso # (Auto) (0-100) /uL PT (10.1-12.7) SECONDS INR (0.9-1.3) APTT (26.4-36.2) SECONDS Sodium 134 L (137-145) mmol/L Potassium 4.0 (3.4-5.1) mmol/L Chloride 99 (98-107) mmol/L Carbon Dioxide 28 (22-32) mmol/L BUN 8 (7-17) mg/dL Creatinine 0.70 (0.52-1.04) mg/dL Estimated GFR > 60.0 (>60) mL/min BUN/Creatinine Ratio 11.4 (6-22) Glucose 121 H (80-110) mg/dL Lactate (0.7-2.1) mmol/L Calcium 9.7 (8.4-10.2) mg/dL Total Bilirubin 0.6 (0.2-1.3) mg/dL AST 27 (14-36) IU/L ALT 14 (<35) IU/L Alkaline Phosphatase 120 (38-126) U/L Total Protein 8.3 H (6.3-8.2) g/dL Albumin 4.4 (3.5-5.0) g/dL Globulin 3.9 (1.7-4.1) g/dL Albumin/Globulin Ratio 1.1 (1.0-2.8) Blood Type O Positive Antibody Screen Negative Point of Care Testing Stool Occult Blood Positive MDM Narrative Medical decision making narrative: Patient is an extremely hard IV start I have looked myself with the ultrasound she is extremely small veins the PICC line nurse is on their way from [place]. Luckily hemodynamically stable no need for central line at this time. She did have 1 large bloody bowel movement in the ED. I spoke with Dr. Pedro surgery agrees to consult Dr. dejesus accepts Discharge Plan Departure Patient Disposition: Admitted As Inpatient Clinical Impression: Acute GI bleeding Admit Date/Time: 01/02/20 15:15 Admit Provider: Angelica Nieto
--- NOTE | 2020-01-02 18:28 | P.CONS_ITS ---
History of Present Illness Consult details Date Patient Seen: 01/02/20 Time Patient Seen: 15:30 Chief complaint: Bleeding from rectum x4 days Reason for consult: GI bleed Requesting provider: Dary Rachel Narrative: This is a 74-year-old woman with history of DM2, HTN, severe morbid obseity, and atrial fibrillation on Eliquis who came into the ER today with rectal bleeding the past 4 days. She states it started out as a small amount but has progressively increased. She did have a large bloody bowel movement in the ER today. Her last colonoscopy was in September [address] Hernandez. She was found to have two large colon polyps which were removed, diverticulosis, and small grade 1 hemorrhoids. She denies any dizziness slightly lightheadedness or shortness of breath. She has a a Zio patch on which was placed today. She has no abdominal cramping, no rectal pain, no sense of swelling or rectal prolapse. No nasea, vomiting, fevers. ROS: GENERAL: Denies chills, fatigue, malaise, fever, sweats, travel HEENT: Denies sinus pain, ear pain, sore throat, difficulty swallowing, neck pain RESPIRATORY: Denies dyspnea, cough, wheezing, hemoptysis, sputum. CARDIOVASCULAR: Denies chest pain, palpitations, orthopnea, edema GASTROINTESTINAL: See HPI : Denies dysuria, frequency, incontinence, hematuria, urinary retention, flank pain. MUSCULOSKELETAL: Denies weakness, joint pain, or bony pain SKIN: No rash, no erythema, no pruritus NEUROLOGIC: Denies weakness, dizziness, headache, numbness, change in speech, confusion PSYCHIATRIC: No concerning psychosocial issues. 12 point review of systems is negative except for those stated above and HPI PE: GENERAL: Well groomed and cooperative. Severe morbid obesity; Appears stated age. Answers questions promptly and appropriately. Vital signs noted. HENT: Normocephalic, atraumatic. Hearing intact. Oral mucosa is pink and moist. EYES: Conjunctiva pink, sclera white, no periorbital swelling. CARDIOVASCULAR: Regular rate. No pedal edema. RESPIRATORY: Non-tachypneic, breathing comfortably on room air. GASTROINTESTINAL: Abdomen soft and non-distended Perianal: no stool staining, no gross blood, no external hemorrhoids, no evidence of prolapse. GENITALURINARY: No flank tenderness. MUSCULOSKELETAL: Equal tone and mass bilaterally. SKIN: Warm, dry, soft, appropriate color for ethnicity. No other lesions, rashes, or wounds. NEURO: Alert and Oriented X 3. No gross sensory deficits, or cognitive issues. PSYCH: Appropriate mood and affect, normal intellect Meds Home Medications and Allergies Home Medications Medication Instructions Recorded Confirmed Type apixaban 5 mg tablet 5 mg PO BID 10/05/17 01/02/20 History atorvastatin 10 mg tablet 10 mg PO DAILY 10/05/17 01/02/20 History cholecalciferol (vitamin D3) 25 1,000 unit PO DAILY 10/05/17 01/02/20 History mcg (1,000 unit) capsule flecainide 100 mg tablet 50 mg PO Q12H 10/05/17 01/02/20 History lidocaine 5 % topical patch 3 patch TOP DAILY each 10/05/17 01/02/20 History magnesium oxide 500 mg capsule 1,000 mg PO TID cap 10/05/17 01/02/20 History metformin 500 mg tablet,extended 1,000 mg PO BID 10/05/17 01/02/20 History release 24 hr metoprolol succinate 50 mg 25 mg PO DAILY 10/05/17 01/02/20 History tablet,extended release 24 hr metronidazole 1 % topical gel 1 applictn TOP DAILY 10/05/17 01/02/20 History vitamin I38-[id number] acid 1 giancarlo SUBLINGUAL DAILY 10/10/18 01/02/20 History lisinopril 10 mg BID 01/02/20 01/02/20 History Allergies Allergy/AdvReac Type Severity Reaction Status Date / Time dicloxacillin Allergy Unknown Verified 01/02/20 12:07 acetaminophen [From VICODIN] AdvReac Unknown Verified 01/02/20 12:07 amitriptyline [AMITRIPTYLINE] AdvReac Unknown Verified 01/02/20 12:07 amlodipine [From NORVASC] AdvReac Unknown Verified 01/02/20 12:07 aspirin [ASPIRIN] AdvReac Unknown Verified 01/02/20 12:07 baclofen [BACLOFEN] AdvReac Unknown Verified 01/02/20 12:07 celecoxib [From CELEBREX] AdvReac Unknown Verified 01/02/20 12:07 codeine [CODEINE] AdvReac Unknown Verified 01/02/20 12:07 cyclobenzaprine AdvReac Unknown Verified 01/02/20 12:07 [From FLEXERIL] diazepam [DIAZEPAM] AdvReac Unknown Verified 01/02/20 12:07 dicyclomine [DICYCLOMINE] AdvReac Unknown Verified 01/02/20 12:07 diphenhydramine AdvReac Unknown Verified 01/02/20 12:07 [DIPHENHYDRAMINE] gabapentin [From NEURONTIN] AdvReac Unknown Verified 01/02/20 12:07 guaifenesin [GUAIFENESIN] AdvReac Unknown Verified 01/02/20 12:07 hydrocodone [From VICODIN] AdvReac Unknown Verified 01/02/20 12:07 hydromorphone [From DILAUDID] AdvReac Unknown Verified 01/02/20 12:07 ibuprofen [IBUPROFEN] AdvReac Unknown Verified 01/02/20 12:07 lansoprazole [LANSOPRAZOLE] AdvReac Unknown Verified 01/02/20 12:07 ondansetron AdvReac Unknown Verified 01/02/20 12:07 [From ZOFRAN ( HYDROCHLORIDE)] oxytocin [OXYTOCIN] AdvReac Unknown Verified 01/02/20 12:07 paroxetine [From PAXIL] AdvReac Unknown Verified 01/02/20 12:07 pindolol [PINDOLOL] AdvReac Unknown Verified 01/02/20 12:07 pregabalin [PREGABALIN] AdvReac Unknown Verified 01/02/20 12:07 promethazine [From PHENERGAN] AdvReac Unknown Verified 01/02/20 12:07 pyridostigmine AdvReac Unknown Verified 01/02/20 12:07 [From MESTINON] ranitidine [From ZANTAC] AdvReac Unknown Verified 01/02/20 12:07 tizanidine [TIZANIDINE] AdvReac Unknown Verified 01/02/20 12:07 tramadol [TRAMADOL] AdvReac Unknown Verified 01/02/20 12:07 TRAZADONE AdvReac Unknown Uncoded 10/18/18 09:12 KRYSTLE BASE AdvReac Unknown Uncoded 10/18/18 09:12 Exam Vital Signs (past 8 hours): - 01/02/20 12:03 01/02/20 12:05 01/02/20 12:06 Temperature Pulse Rate 86 85 81 Respiratory Rate 17 Blood Pressure 216/91 H 200/85 H Pulse Oximetry 99 100 100 01/02/20 12:07 01/02/20 12:13 01/02/20 12:30 Temperature 97.8 F Pulse Rate 78 76 76 Respiratory Rate 18 17 14 Blood Pressure 200/85 H 166/72 H Pulse Oximetry 100 99 99 01/02/20 13:00 01/02/20 13:30 01/02/20 14:00 Temperature Pulse Rate 75 72 72 Respiratory Rate 18 17 20 Blood Pressure Pulse Oximetry 100 100 01/02/20 14:25 01/02/20 14:30 01/02/20 15:00 Temperature Pulse Rate 70 69 70 Respiratory Rate 17 19 20 Blood Pressure 154/67 H 151/66 H 151/67 H Pulse Oximetry 100 99 99 01/02/20 15:30 01/02/20 15:55 01/02/20 16:05 Temperature 97.8 F 97.2 F L Pulse Rate 83 67 79 Respiratory Rate 39 H 18 18 Blood Pressure 147/65 H 149/66 H Pulse Oximetry 100 97 Oxygen Delivery Method Room Air Oxygen Flow Rate 0 Objective Labs Result Diagrams: 01/02/20 14:19 01/02/20 14:19 Labs: Laboratory Results - last 24 hr 01/02/20 01/02/20 01/02/20 14:19 14:19 14:19 WBC 10.9 RBC 4.12 Hgb 11.2 L Hct 34.1 L MCV 82.6 MCH 27.3 MCHC 33.0 RDW 14.4 Plt Count 299 Neut % (Auto) 84.1 H Lymph % (Auto) 10.8 L [place] % (Auto) 4.1 Eos % (Auto) 0.8 L Baso % (Auto) 0.2 Neut # (Auto) 9200 H Lymph # (Auto) 1200 [place] # (Auto) 400 Eos # (Auto) 100 Baso # (Auto) 0 PT 16.1 H INR 1.4 H APTT 46 H D Sodium Potassium Chloride Carbon Dioxide BUN Creatinine Estimated GFR BUN/Creatinine Ratio Glucose Lactate 1.8 Calcium Total Bilirubin AST ALT Alkaline Phosphatase Total Protein Albumin Globulin Albumin/Globulin Ratio Blood Type Antibody Screen 01/02/20 01/02/20 14:19 14:19 WBC RBC Hgb Hct MCV MCH MCHC RDW Plt Count Neut % (Auto) Lymph % (Auto) [place] % (Auto) Eos % (Auto) Baso % (Auto) Neut # (Auto) Lymph # (Auto) [place] # (Auto) Eos # (Auto) Baso # (Auto) PT INR APTT Sodium 134 L Potassium 4.0 Chloride 99 Carbon Dioxide 28 BUN 8 Creatinine 0.70 Estimated GFR > 60.0 BUN/Creatinine Ratio 11.4 Glucose 121 H Lactate Calcium 9.7 Total Bilirubin 0.6 AST 27 ALT 14 Alkaline Phosphatase 120 Total Protein 8.3 H Albumin 4.4 Globulin 3.9 Albumin/Globulin Ratio 1.1 Blood Type O Positive Antibody Screen Negative Assessment & Plan Assessment and plan (1) Acute GI bleeding: Status: Acute (2) Diverticulosis: Status: Acute (3) Diabetes: Status: Chronic (4) Atrial fibrillation: Status: Acute (5) Anticoagulated by anticoagulation treatment: Status: Acute Assessment & Plan narrative: This is a 74 yo woman who has severe morbid obesity, atrial fibrillation, and is anticoagulated on Eliquis. She is here for a GI bleed, which has occurred on Eliquis. She had a colonoscopy 14 months ago by which revealed two large polyps (removed), diverticulosis, and hemorrhoids. Diverticulosis and hemorrhoids are the most likely possible sources of bleeding. A bleeding polyp is very unlikely to have developed within 14 months of her last scope. I am recommending the patient be kept for obs on the hospitalist service, and plan on dispo pending stable hgb. However, if she continues bleeding, or hgb drops significantly we will consider another colono scopy on this admission. Plan: Hold anticoagulation Ok for clear diet If bleeding continues, prep tomorrow and scope on Monday. COVID test before admission Admit to hospitalist for obs
[2020-01-02 21:11] LABS: Hemoglobin A1C% w Est Avg Glu 6.5 % (4.0-6.0)
[2020-01-02] MEDS: ATORVASTATIN 20 MG TABLET 10 MG PO (21:16)
[2020-01-02] MEDS: FLECAINIDE 100 MG TABLET 50 MG PO (21:17)
[2020-01-02] MEDS: SODIUM CHLORIDE 0.9% 1,000 ML 75 ML IV (21:18)
[2020-01-02] MEDS: lisinopriL 10 MG TABLET PO (21:22)
[2020-01-02 22:28] LABS: COVID19 -Nasal RAPID Negative (Negative)
--- NOTE | 2020-01-02 22:47 | PC.ADMIT ---
[id number] Admission Note: The patient,Lexie Huber,74 y/o, was given written information regarding hospital policies, unit procedures and contact persons. Patient's smoking status: Never smoker. Vital Signs - 8 hr 01/02/20 15:00 01/02/20 15:30 01/02/20 15:55 Temperature 97.8 F Pulse Rate 70 83 67 Respiratory Rate 20 39 H 18 Blood Pressure 151/67 H 147/65 H Pulse Oximetry 99 100 01/02/20 16:05 01/02/20 20:23 01/02/20 21:22 Temperature 97.2 F L 97.5 F L Pulse Rate 79 58 L 58 L Respiratory Rate 18 18 Blood Pressure 149/66 H 144/65 H 144/65 H Pulse Oximetry 97 Pt arrived via stretcher at 1606, transferred self to in patient bed. Has walking boot on right ankle d/t self report hx of achilles rupture. Denies recent hx of falls. Midline started by [facility] d/t inability to achieve access in ED. Fall risk and call light education given, acknowledged all teaching. High fall risk, bed alarm on and functioning, call light in reach.
--- NOTE | 2020-01-02 23:37 | P.HP_ITS ---
History of Present Illness History of Present Illness Date Patient Seen: 01/02/20 Chief complaint: Bleeding from rectum x4 days Narrative: Lexie Huber is a 74 y.o. female with atrial fibrillation anticoagulated with apixaban, history of diverticulitis, history of endometrial cancer, and diabetes type 2 presented with a several day history bloody stool. She eventually went to the emergency department at the behest of Dr. Ken her automotive refinisher and and apparently had a rather large and explosive bloody diarrheal episode in the emergency department. She denies having fever sweats or chills, shortness of breath, she has complained of abdominal cramping and has chronic ventral hernias which also contribute to the cramping. She denies dysuria or constipation. She has a history of chronic right leg tenosynovitis and wears a walking boot. Approximately 14 months ago she underwent a colonoscopy by Dr. Hernandez where she was found to have large polyps and diverticulitis. In the emergency department they typed and screened her and she was seen by General surgery. They did not feel that she would have had repeated large bleeding polyps. They would like for her to be observed and if she does continue to bleed they would want have her go through a bowel prep on Monday and undergo a repeat colonoscopy on Monday. Patient is afebrile, blood pressure 144/65, heart rate 58, respiratory rate 18, oxygen saturation of 97% on room air, she weighs 111.9 kg with a BMI of 40.2. Her hemoglobin and hematocrit are 11.2 and 34.1 which is currently her baseline, she does have up slight left shift with a neutrophil count of 9200, PT is 16.1, INR 1.4, her APTT is 46, sodium 134, rest of her chemistries are within normal limits, glucose is 121, A1c is 6.5, lactate was normal, COVID PCR was negative and she has a blood type O positive. Patient History Medical History Atrial fibrillation Diabetes Diverticulosis History of cardioversion History of endometrial cancer Surgical History History of cholecystectomy History of hysterectomy for cancer Family & Social History Family History Brother Hypertension Cancer Sister Cancer Social History: household members spouse Prior Living Arrangements House Safety & Behavioral: Feels Safe in Current Yes Environment Been Physically Hurt or No Threatened By a Person Suicidal Ideation Description None Suicide Plan Description No Plan Tobacco & Substance use: Smoking Status Never smoker alcohol intake never Substance Use Type does not use Meds Home Medications and Allergies Home Medications Medication Instructions Recorded Confirmed Type apixaban 5 mg tablet 5 mg PO BID 10/05/17 01/02/20 History atorvastatin 10 mg tablet 10 mg PO DAILY 10/05/17 01/02/20 History cholecalciferol (vitamin D3) 25 1,000 unit PO DAILY 10/05/17 01/02/20 History mcg (1,000 unit) capsule flecainide 100 mg tablet 50 mg PO Q12H 10/05/17 01/02/20 History lidocaine 5 % topical patch 3 patch TOP DAILY each 10/05/17 01/02/20 History magnesium oxide 500 mg capsule 1,000 mg PO TID cap 10/05/17 01/02/20 History metformin 500 mg tablet,extended 1,000 mg PO BID 10/05/17 01/02/20 History release 24 hr metoprolol succinate 50 mg 25 mg PO DAILY 10/05/17 01/02/20 History tablet,extended release 24 hr metronidazole 1 % topical gel 1 applictn TOP DAILY 10/05/17 01/02/20 History vitamin A01-[id number] acid 1 giancarlo SUBLINGUAL DAILY 10/10/18 01/02/20 History lisinopril 10 mg BID 01/02/20 01/02/20 History Allergies Allergy/AdvReac Type Severity Reaction Status Date / Time dicloxacillin Allergy Unknown Verified 01/02/20 12:07 acetaminophen [From VICODIN] AdvReac Unknown Verified 01/02/20 12:07 amitriptyline [AMITRIPTYLINE] AdvReac Unknown Verified 01/02/20 12:07 amlodipine [From NORVASC] AdvReac Unknown Verified 01/02/20 12:07 aspirin [ASPIRIN] AdvReac Unknown Verified 01/02/20 12:07 baclofen [BACLOFEN] AdvReac Unknown Verified 01/02/20 12:07 celecoxib [From CELEBREX] AdvReac Unknown Verified 01/02/20 12:07 codeine [CODEINE] AdvReac Unknown Verified 01/02/20 12:07 cyclobenzaprine AdvReac Unknown Verified 01/02/20 12:07 [From FLEXERIL] diazepam [DIAZEPAM] AdvReac Unknown Verified 01/02/20 12:07 dicyclomine [DICYCLOMINE] AdvReac Unknown Verified 01/02/20 12:07 diphenhydramine AdvReac Unknown Verified 01/02/20 12:07 [DIPHENHYDRAMINE] gabapentin [From NEURONTIN] AdvReac Unknown Verified 01/02/20 12:07 guaifenesin [GUAIFENESIN] AdvReac Unknown Verified 01/02/20 12:07 hydrocodone [From VICODIN] AdvReac Unknown Verified 01/02/20 12:07 hydromorphone [From DILAUDID] AdvReac Unknown Verified 01/02/20 12:07 ibuprofen [IBUPROFEN] AdvReac Unknown Verified 01/02/20 12:07 lansoprazole [LANSOPRAZOLE] AdvReac Unknown Verified 01/02/20 12:07 ondansetron AdvReac Unknown Verified 01/02/20 12:07 [From ZOFRAN ( HYDROCHLORIDE)] oxytocin [OXYTOCIN] AdvReac Unknown Verified 01/02/20 12:07 paroxetine [From PAXIL] AdvReac Unknown Verified 01/02/20 12:07 pindolol [PINDOLOL] AdvReac Unknown Verified 01/02/20 12:07 pregabalin [PREGABALIN] AdvReac Unknown Verified 01/02/20 12:07 promethazine [From PHENERGAN] AdvReac Unknown Verified 01/02/20 12:07 pyridostigmine AdvReac Unknown Verified 01/02/20 12:07 [From MESTINON] ranitidine [From ZANTAC] AdvReac Unknown Verified 01/02/20 12:07 tizanidine [TIZANIDINE] AdvReac Unknown Verified 01/02/20 12:07 tramadol [TRAMADOL] AdvReac Unknown Verified 01/02/20 12:07 TRAZADONE AdvReac Unknown Uncoded 10/18/18 09:12 KRYSTLE BASE AdvReac Unknown Uncoded 10/18/18 09:12 Review of Systems Review of Systems ROS: Yes All systems reviewed with the patient and are negative except as otherwise documented Exam Vital Signs (past 8 hours): - 01/02/20 15:55 01/02/20 16:05 01/02/20 20:23 Temperature 97.8 F 97.2 F L 97.5 F L Pulse Rate 67 79 58 L Respiratory Rate 18 18 18 Blood Pressure 147/65 H 149/66 H 144/65 H Pulse Oximetry 100 97 01/02/20 21:22 Temperature Pulse Rate 58 L Respiratory Rate Blood Pressure 144/65 H Pulse Oximetry Oxygen Delivery Method Room Air Oxygen Flow Rate 0 Narrative Exam Narrative: Gen: Alert, oriented, morbidly obese 74 y.o. female, NAD HEENT: normocephalic, atraumatic, conjunctiva clear, sclera non-icteric, oral mucosa pink and moist Neck: supple, full ROM, no JVD, trachea is midline Resp: Lungs CTA, non-labored breathing CV: RRR, no murmur or rubs Abd: soft, non-tender, normoactive BTs Skin: no lesions or rashes, dry and intact Neuro: Alert and oriented X 4 w/no focal deficits. Speech clear and coherent. Extremities: Trace edema in the right lower extremity, moves all 4 extremities, is ambulatory, bilateral calf tenderness, patient states is always present Psyche: normal mood and affect. Objective Labs Result Diagrams: 01/02/20 14:19 01/02/20 14:19 Labs: Laboratory Results - last 24 hr 01/02/20 01/02/20 01/02/20 14:19 14:19 14:19 WBC 10.9 RBC 4.12 Hgb 11.2 L Hct 34.1 L MCV 82.6 MCH 27.3 MCHC 33.0 RDW 14.4 Plt Count 299 Neut % (Auto) 84.1 H Lymph % (Auto) 10.8 L [place] % (Auto) 4.1 Eos % (Auto) 0.8 L Baso % (Auto) 0.2 Neut # (Auto) 9200 H Lymph # (Auto) 1200 [place] # (Auto) 400 Eos # (Auto) 100 Baso # (Auto) 0 PT 16.1 H INR 1.4 H APTT 46 H D Sodium Potassium Chloride Carbon Dioxide BUN Creatinine Estimated GFR BUN/Creatinine Ratio Glucose Hemoglobin A1c Lactate 1.8 Calcium Total Bilirubin AST ALT Alkaline Phosphatase Total Protein Albumin Globulin Albumin/Globulin Ratio COVID-19 PCR Blood Type Antibody Screen 11/01/02/20 01/02/20 14:19 14:19 14:19 WBC RBC Hgb Hct MCV MCH MCHC RDW Plt Count Neut % (Auto) Lymph % (Auto) [place] % (Auto) Eos % (Auto) Baso % (Auto) Neut # (Auto) Lymph # (Auto) [place] # (Auto) Eos # (Auto) Baso # (Auto) PT INR APTT Sodium 134 L Potassium 4.0 Chloride 99 Carbon Dioxide 28 BUN 8 Creatinine 0.70 Estimated GFR > 60.0 BUN/Creatinine Ratio 11.4 Glucose 121 H Hemoglobin A1c 6.5 H Lactate Calcium 9.7 Total Bilirubin 0.6 AST 27 ALT 14 Alkaline Phosphatase 120 Total Protein 8.3 H Albumin 4.4 Globulin 3.9 Albumin/Globulin Ratio 1.1 COVID-19 PCR Blood Type O Positive Antibody Screen Negative 01/02/20 21:55 WBC RBC Hgb Hct MCV MCH MCHC RDW Plt Count Neut % (Auto) Lymph % (Auto) [place] % (Auto) Eos % (Auto) Baso % (Auto) Neut # (Auto) Lymph # (Auto) [place] # (Auto) Eos # (Auto) Baso # (Auto) PT INR APTT Sodium Potassium Chloride Carbon Dioxide BUN Creatinine Estimated GFR BUN/Creatinine Ratio Glucose Hemoglobin A1c Lactate Calcium Total Bilirubin AST ALT Alkaline Phosphatase Total Protein Albumin Globulin Albumin/Globulin Ratio COVID-19 PCR Negative Blood Type Antibody Screen Assessment & Plan Assessment & Plan narrative: Lexie Huber will be placed into observation with her blood counts closely monitored due to a lower GI bleed Lower GI bleed, acute, present on admission -Dr. Beard consulting -She recommends monitoring for further bleeding -Patient has been type and screened. Midnight CBC and one in the am -If with continued wilma bleeding, prep on 01/02 and plan for repeat scope on 01/03 -Hold apixaban Atrial fibrillation, chronic and present on admission -rhythm control with home dose of flecainide 50 mg po bid -rate control with metoprolol succinate 25 mg po daily Essential hypertension, chronic and present on admission -Continue home dose of lisinopril 10 mg twice daily Diabetes type 2, chronic and good control with an A1c of 6.5 -holding metformin -Medium dose correctional scale insulin VTE prophylaxis: Bilateral Wells risk score: 0 Bilateral SCDs Consults: Dr. Beard, consult and involvement is appreciated. Patient is observation status as her stay is not likely to exceed 2 midnights. FEN: NS at 75 ml/hour, clears, BMP and magnesium in the am. Dispo: probable discharge to home Code Status: Full code as discussed with patient COVID-19 COVID-19 status: Negative Result date/Date tested (Pos, Neg/Pending): 01/02/20 Scores Wells' Criteria for PE Clinical signs and symptoms of DVT: No PE is #1 Dx or equally likely: No Heart rate > 100: No Immobilization at least 3 days or surg in previous 4 weeks: No History of PE or DVT: No Hemoptysis: No Malignancy w/Treatment within 6 months or palliative: No Wells' PE Score total: 0 Quality VTE Deep Vein Thrombosis/Pulmonary Embolism Present on Admission: No
[2020-01-03] VITALS (14 sets, daily range): BP systolic 132–160; BP diastolic 50–78; PULSE 54–68; RESP 14–18; TEMP 36.2–37.6; O2SAT 95–100
[2020-01-03 00:34] LABS: Add Manual Diff / Slide Review NO; Basophils Absolute Auto 0 /uL (0-100); Basophils Percent Auto 0.4 % (0-2); Eosinophils Absolute Auto 200 /uL (0-450); Eosinophils Percent Auto 1.7 % (2-4); Hematocrit 32.8 % (36-46); Hemoglobin 10.7 g/dL (12.0-16.0); Lymphocytes Absolute Auto 1500 /uL (1100-4500); Lymphocytes Percent Auto 16.7 % (25-40); Mean Corpuscular HGB Conc 32.7 % (30-36); Mean Corpuscular Hemoglobin 26.9 PG (26-34); Mean Corpuscular Volume 82.3 fL (80-100); Monocytes Absolute Auto 500 /uL (0-900); Monocytes Percent Auto 5.9 % (3-14); Neutrophils Absolute Auto 6700 /uL (1500-7000); Neutrophils Percent Auto 75.3 % (50-75); Platelet Count 279 X10^3/uL (150-400); Red Blood Cell Count 3.98 X10^6/uL (4.0-5.2); Red Cell Distribution Width 14.4 % (11.6-14.8); White Blood Cell Count 8.9 X10^3/uL (4.5-11.0)
[2020-01-03 05:55] LABS: Add Manual Diff / Slide Review NO; Basophils Absolute Auto 0 /uL (0-100); Basophils Percent Auto 0.3 % (0-2); Eosinophils Absolute Auto 100 /uL (0-450); Eosinophils Percent Auto 1.7 % (2-4); Hemoglobin 10.3 g/dL (12.0-16.0); Lymphocytes Absolute Auto 1000 /uL (1100-4500); Lymphocytes Percent Auto 13.3 % (25-40); Mean Corpuscular HGB Conc 33.3 % (30-36); Mean Corpuscular Hemoglobin 27.3 PG (26-34); Monocytes Absolute Auto 500 /uL (0-900); Neutrophils Absolute Auto 5900 /uL (1500-7000); Neutrophils Percent Auto 78.7 % (50-75); Platelet Count 266 X10^3/uL (150-400); Red Blood Cell Count 3.78 X10^6/uL (4.0-5.2); Red Cell Distribution Width 14.4 % (11.6-14.8); White Blood Cell Count 7.5 X10^3/uL (4.5-11.0)
[2020-01-03 06:24] LABS: BUN Creatinine Ratio 9.9 (6-22); Blood Urea Nitrogen 7 mg/dL (7-17); Calcium 8.8 mg/dL (8.4-10.2); Carbon Dioxide 28 mmol/L (22-32); Chloride 101 mmol/L (98-107); Estimated Glomerular Filt Rate > 60.0 mL/min (>60); Glucose 122 mg/dL (80-110); HEMOLYSIS < 15 (0-50); Magnesium 1.9 mg/dL (1.6-2.3); Sodium 131 mmol/L (137-145)
[2020-01-03] MEDS: lisinopriL 10 MG TABLET PO ×2 (09:59→20:34)
[2020-01-03] MEDS: FLECAINIDE 100 MG TABLET 50 MG PO ×2 (10:00→20:35)
[2020-01-03] MEDS: INFLUENZA HD VACCINE 0.7 ML SYRINGE IM (10:00)
[2020-01-03] MEDS: SODIUM CHLORIDE 0.9% 1,000 ML 75 ML IV (10:13)
--- NOTE | 2020-01-03 11:18 | PM.PN.1 ---
Subjective Subjective Date Patient Seen: 01/03/20 Interval history: Lexie Huber is a 74-year-old female with a past medical history significant for hypertension, paroxysmal atrial fibrillation on Eiquis, and diabetes mellitus type 2, non-insulin using, who presented to the ED with bright red blood per rectum x 4 days. The patient is resting in bedside chair comfortably. She continues to have lower GI bleeding this morning with bright red blood. Plan for bowel prep today and colonoscopy tomorrow with general surgery. She denies headache, chest pain, shortness of breath, lightheadedness or dizziness, abdominal pain, nausea, vomiting, fever, chills, or dysuria. She is up ambulating with assistance. Exam Vital Signs (past 8 hours): - 01/03/20 04:32 01/03/20 08:35 01/03/20 09:59 Temperature 97.7 F 98.6 F Pulse Rate 56 L 54 L 54 L Respiratory Rate 17 14 Blood Pressure 144/62 H 149/66 H 146/50 H Pulse Oximetry 99 95 Oxygen Delivery Method Room Air Oxygen Flow Rate 0 Narrative Exam Narrative: General: Elderly female acute distress, well-developed, well-nourished, appropriately interactive. HEENT: Normocephalic, atraumatic. External ears without defect. Pupils equal, round, and reactive to light. Anicteric sclerae, moist conjunctivae, and no lid lag. Oropharynx free of erythema and cobble stoning with moist mucosa. Neck: Supple with full range of motion. No lymphadenopathy or thyromegaly. Cardiovascular: Regular rate and rhythm without murmurs, rubs, or gallops appreciated. Pulmonary: Clear to auscultation bilaterally without crackles, wheezes, or rhonchi. Normal respiratory effort with no use of accessory muscles. Abdomen: Soft, bowel sounds present, nontender, nondistended. Extremities: No clubbing, cyanosis, or edema. Skin: Normal temperature, turgor, and texture; no rash, ulcers, or subcutaneous nodules appreciated. Neurological: Cranial nerves grossly intact. Psychiatric: Normal mood and affect. Alert and oriented to person, place, and time. Objective Labs Result Diagrams: 01/03/20 05:20 01/03/20 05:20 Labs: Laboratory Results - last 24 hr 01/02/20 01/02/20 01/02/20 14:19 14:19 14:19 WBC 10.9 RBC 4.12 Hgb 11.2 L Hct 34.1 L MCV 82.6 MCH 27.3 MCHC 33.0 RDW 14.4 Plt Count 299 Neut % (Auto) 84.1 H Lymph % (Auto) 10.8 L [place] % (Auto) 4.1 Eos % (Auto) 0.8 L Baso % (Auto) 0.2 Neut # (Auto) 9200 H Lymph # (Auto) 1200 [place] # (Auto) 400 Eos # (Auto) 100 Baso # (Auto) 0 PT 16.1 H INR 1.4 H APTT 46 H D Sodium Potassium Chloride Carbon Dioxide BUN Creatinine Estimated GFR BUN/Creatinine Ratio Glucose Hemoglobin A1c Lactate 1.8 Calcium Magnesium Total Bilirubin AST ALT Alkaline Phosphatase Total Protein Albumin Globulin Albumin/Globulin Ratio COVID-19 PCR Blood Type Antibody Screen 01/02/20 01/02/20 01/02/20 14:19 14:19 14:19 WBC RBC Hgb Hct MCV MCH MCHC RDW Plt Count Neut % (Auto) Lymph % (Auto) [place] % (Auto) Eos % (Auto) Baso % (Auto) Neut # (Auto) Lymph # (Auto) [place] # (Auto) Eos # (Auto) Baso # (Auto) PT INR APTT Sodium 134 L Potassium 4.0 Chloride 99 Carbon Dioxide 28 BUN 8 Creatinine 0.70 Estimated GFR > 60.0 BUN/Creatinine Ratio 11.4 Glucose 121 H Hemoglobin A1c 6.5 H Lactate Calcium 9.7 Magnesium Total Bilirubin 0.6 AST 27 ALT 14 Alkaline Phosphatase 120 Total Protein 8.3 H Albumin 4.4 Globulin 3.9 Albumin/Globulin Ratio 1.1 COVID-19 PCR Blood Type O Positive Antibody Screen Negative 01/02/20 01/02/20 01/03/20 21:55 23:59 05:20 WBC 8.9 7.5 RBC 3.98 L 3.78 L Hgb 10.7 L 10.3 L Hct 32.8 L 31.0 L MCV 82.3 82.0 MCH 26.9 27.3 MCHC 32.7 33.3 RDW 14.4 14.4 Plt Count 279 266 Neut % (Auto) 75.3 H 78.7 H Lymph % (Auto) 16.7 L 13.3 L [place] % (Auto) 5.9 6.0 Eos % (Auto) 1.7 L 1.7 L Baso % (Auto) 0.4 0.3 Neut # (Auto) 6700 5900 Lymph # (Auto) 1500 1000 L [place] # (Auto) 500 500 Eos # (Auto) 200 100 Baso # (Auto) 0 0 PT INR APTT Sodium Potassium Chloride Carbon Dioxide BUN Creatinine Estimated GFR BUN/Creatinine Ratio Glucose Hemoglobin A1c Lactate Calcium Magnesium Total Bilirubin AST ALT Alkaline Phosphatase Total Protein Albumin Globulin Albumin/Globulin Ratio COVID-19 PCR Negative Blood Type Antibody Screen 01/03/20 05:20 WBC RBC Hgb Hct MCV MCH MCHC RDW Plt Count Neut % (Auto) Lymph % (Auto) [place] % (Auto) Eos % (Auto) Baso % (Auto) Neut # (Auto) Lymph # (Auto) [place] # (Auto) Eos # (Auto) Baso # (Auto) PT INR APTT Sodium 131 L Potassium 4.0 Chloride 101 Carbon Dioxide 28 BUN 7 Creatinine 0.71 Estimated GFR > 60.0 BUN/Creatinine Ratio 9.9 Glucose 122 H Hemoglobin A1c Lactate Calcium 8.8 Magnesium 1.9 Total Bilirubin AST ALT Alkaline Phosphatase Total Protein Albumin Globulin Albumin/Globulin Ratio COVID-19 PCR Blood Type Antibody Screen Assessment & Plan Assessment & Plan narrative: Lexie Huber is a 74-year-old female with a past medical history significant for hypertension, paroxysmal atrial fibrillation on Eliquis, and diabetes mellitus type 2, non-insulin using, who presented to the ED with bright red blood per rectum x 4 days. 1. Acute lower GI bleed with acute blood loss anemia, present on admission. Active. -Patient presented with painless bright red bleeding per rectum x 4 days. -Initial hemoglobin 11.2. Hemoglobin trending down now 10.3. Continue to monitor H&H every 6 hours. -Held Eliquis. Continue to monitor closely on telemetry. -Consulted general surgery, Dr. Pedro, who recommended conservative management initially but due to persistent GI bleeding will plan for bowel prep and colonoscopy tomorrow. Continue clear liquid diet for now. 2. Paroxysmal atrial fibrillation, chronic, present on admission. Stable. -Patient is currently in sinus rhythm with first-degree AV block. -Continue to monitor closely on telemetry. -Continue home flecainide 50 mg twice daily. Held metoprolol succinate 25 mg daily due to mild bradycardia and persistent GI bleeding. 3. Hypertension, chronic, present on admission. Stable. -Continue home lisinopril 10 mg twice daily. 4. Diabetes type 2, non-insulin using, chronic, present on admission. Stable. -Hemoglobin A1c 6.5% indicative of fair glycemic control. -Held metformin. -Continue ACHS (Q6H once NPO) blood glucose checks and low-dose correctional scale insulin. -Continue clear liquid diet as above. Code status: Full code VTE prophylaxis: Bilateral SCDs Disposition: Patient likely discharge home in 1-2 days once colonoscopy performed and GI bleeding resolved. Quality VTE Deep Vein Thrombosis/Pulmonary Embolism Present on Admission: No
[2020-01-03] MEDS: INSULIN ASPART 100 UNIT/ML INSULN PEN SUBCUT (12:28)
--- NOTE | 2020-01-03 13:05 | PM.PN.1 ---
Subjective Subjective Date Patient Seen: 01/03/20 Time Patient Seen: 16:43 Interval history: No acute events over night. The pt continues to put out bloody stool. She is now prepping for colonoscopy. Exam Vital Signs (past 8 hours): - 01/03/20 08:35 01/03/20 09:59 01/03/20 11:30 Temperature 98.6 F 98.4 F Pulse Rate 54 L 54 L 68 Respiratory Rate 14 16 Blood Pressure 149/66 H 146/50 H 157/78 H Pulse Oximetry 95 99 Oxygen Delivery Method Room Air Oxygen Flow Rate 0 Narrative Exam Narrative: PE: GENERAL: Alert, comfortable, morbidly obese. Appears stated age. Answers questions promptly and appropriately. Vital signs noted. HENT: Normocephalic, atraumatic. Hearing intact. Oral mucosa is pink and moist. EYES: Conjunctiva pink, sclera white, no periorbital swelling. CARDIOVASCULAR: Regular rate. No pedal edema. RESPIRATORY: Non-tachypneic, breathing comfortably on room air. GASTROINTESTINAL: Abdomen soft and non-distended GENITALURINARY: No flank tenderness. MUSCULOSKELETAL: Equal tone and mass bilaterally. SKIN: Warm, dry, soft, appropriate color for ethnicity. No other lesions, rashes, or wounds. NEURO: Alert and Oriented X 3. No gross sensory deficits, or cognitive issues. PSYCH: Appropriate mood and affect, normal intellect Objective Labs Result Diagrams: 01/03/20 13:00 01/03/20 05:20 Labs: Laboratory Results - last 24 hr 01/02/20 01/02/20 01/02/20 14:19 14:19 14:19 WBC 10.9 RBC 4.12 Hgb 11.2 L Hct 34.1 L MCV 82.6 MCH 27.3 MCHC 33.0 RDW 14.4 Plt Count 299 Neut % (Auto) 84.1 H Lymph % (Auto) 10.8 L [place] % (Auto) 4.1 Eos % (Auto) 0.8 L Baso % (Auto) 0.2 Neut # (Auto) 9200 H Lymph # (Auto) 1200 [place] # (Auto) 400 Eos # (Auto) 100 Baso # (Auto) 0 PT 16.1 H INR 1.4 H APTT 46 H D Sodium Potassium Chloride Carbon Dioxide BUN Creatinine Estimated GFR BUN/Creatinine Ratio Glucose Hemoglobin A1c Lactate 1.8 Calcium Magnesium Total Bilirubin AST ALT Alkaline Phosphatase Total Protein Albumin Globulin Albumin/Globulin Ratio COVID-19 PCR Blood Type Antibody Screen 01/02/20 01/02/20 01/02/20 14:19 14:19 14:19 WBC RBC Hgb Hct MCV MCH MCHC RDW Plt Count Neut % (Auto) Lymph % (Auto) [place] % (Auto) Eos % (Auto) Baso % (Auto) Neut # (Auto) Lymph # (Auto) [place] # (Auto) Eos # (Auto) Baso # (Auto) PT INR APTT Sodium 134 L Potassium 4.0 Chloride 99 Carbon Dioxide 28 BUN 8 Creatinine 0.70 Estimated GFR > 60.0 BUN/Creatinine Ratio 11.4 Glucose 121 H Hemoglobin A1c 6.5 H Lactate Calcium 9.7 Magnesium Total Bilirubin 0.6 AST 27 ALT 14 Alkaline Phosphatase 120 Total Protein 8.3 H Albumin 4.4 Globulin 3.9 Albumin/Globulin Ratio 1.1 COVID-19 PCR Blood Type O Positive Antibody Screen Negative 01/02/20 01/02/20 01/03/20 21:55 23:59 05:20 WBC 8.9 7.5 RBC 3.98 L 3.78 L Hgb 10.7 L 10.3 L Hct 32.8 L 31.0 L MCV 82.3 82.0 MCH 26.9 27.3 MCHC 32.7 33.3 RDW 14.4 14.4 Plt Count 279 266 Neut % (Auto) 75.3 H 78.7 H Lymph % (Auto) 16.7 L 13.3 L [place] % (Auto) 5.9 6.0 Eos % (Auto) 1.7 L 1.7 L Baso % (Auto) 0.4 0.3 Neut # (Auto) 6700 5900 Lymph # (Auto) 1500 1000 L [place] # (Auto) 500 500 Eos # (Auto) 200 100 Baso # (Auto) 0 0 PT INR APTT Sodium Potassium Chloride Carbon Dioxide BUN Creatinine Estimated GFR BUN/Creatinine Ratio Glucose Hemoglobin A1c Lactate Calcium Magnesium Total Bilirubin AST ALT Alkaline Phosphatase Total Protein Albumin Globulin Albumin/Globulin Ratio COVID-19 PCR Negative Blood Type Antibody Screen 01/03/20 01/03/20 05:20 11:48 WBC RBC Hgb Cancelled Hct Cancelled MCV MCH MCHC RDW Plt Count Neut % (Auto) Lymph % (Auto) [place] % (Auto) Eos % (Auto) Baso % (Auto) Neut # (Auto) Lymph # (Auto) [place] # (Auto) Eos # (Auto) Baso # (Auto) PT INR APTT Sodium 131 L Potassium 4.0 Chloride 101 Carbon Dioxide 28 BUN 7 Creatinine 0.71 Estimated GFR > 60.0 BUN/Creatinine Ratio 9.9 Glucose 122 H Hemoglobin A1c Lactate Calcium 8.8 Magnesium 1.9 Total Bilirubin AST ALT Alkaline Phosphatase Total Protein Albumin Globulin Albumin/Globulin Ratio COVID-19 PCR Blood Type Antibody Screen Assessment & Plan Assessment and plan (1) Anticoagulated by anticoagulation treatment: Status: Chronic (2) Atrial fibrillation: Status: Chronic (3) Diabetes: Status: Chronic (4) Diverticulosis: Status: Chronic (5) Acute GI bleeding: Status: Acute Assessment & Plan narrative: This is a 74 yo woman admitted for GI bleed. She is now prepping for colonoscopy. Plan: Colonoscopy with anesthesiologist for MAC to be done tomorrow NPO at midnight Complete bowel prep until running clear COVID-19 COVID-19 status: Negative Result date/Date tested (Pos, Neg/Pending): 01/03/20 Time Spent With Patient Time with patient: 15-24 minutes Quality VTE Deep Vein Thrombosis/Pulmonary Embolism Present on Admission: No
[2020-01-03 13:28] LABS: Hematocrit 31.6 % (36-46); Hemoglobin 10.5 g/dL (12.0-16.0)
--- NOTE | 2020-01-03 13:30 | CM.IDA ---
Initial DCP Assessment Note Patient is a 74 yo female, resident of [place]. Patient admitted w/ongoing bleeding from rectum and persistent diarrhea PCP: Ethan Bob Payer: MAR[employer] Reviewed chart. Met w/patient this morning, introduced role. Patient sitting up in chair, requests someone call my . Patient concerned that spouse will head towards the hospital and patient would like her to be updated by phone d/t current COVID-19 pandemic and infection risk. TC placed to spouse Jaime, introduced role. Updated that patient having bowel prep today for scheduled scope w/ Dr Hernandez tomorrow. Jaime appreciative for the update. According to Jaime, patient moves fairly well once she is up and moving around the house, no need for AD. Jaime assists w/higher ADLs- chores, errands, and meal prep when needed, patient able to dress and bathe indp at this time. Patient/spouse have no children. 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 SHANIQUE Horta Discharge Planning/Care Management CM Discharge Assessment Start: 01/03/20 13:26 Freq: Status: Active Protocol: Document 01/03/20 13:27 MARITO (Rec: 01/03/20 13:30 MARITO [id number]) Discharge Planning Assessment Assigned Janitor Custodian SHANIQUE Lemons DPOA/Assigned Designee Name Jaime Huber, spouse Contact Information [phone] Advance Directives? No History Provided By Patient,Significant Other Prior Living Arrangements House Household Members spouse Independent with ADL's No Is patient alert and oriented? Yes Needs Assistance With Meal Prep,Managing Medications ,Home Chores / Shopping Patient/Family Preference Home with Home Health Barriers to Discharge Yes Comment Deconditioned, ongoing bleeding, scope tomorrow, likely HH vs SNF depending on medical POC/physical deconditioning during this hospitalization Additional Comment TBD
[2020-01-03] MEDS: PEG3350/SOD SULF,BICARB,CL/KCL 4,000 ML SOLUTION 4000 ML PO (14:10)
[2020-01-03 14:17] LABS: Adenovirus F 40/41 Not Detected (Not Detect); Astrovirus Not Detected (Not Detect); Campylobacter Not Detected (Not Detect); Clostridium difficile toxin AB Not Detected (Not Detect); Cryptosporidium Not Detected (Not Detect); Cyclospora cayetanensis Not Detected (Not Detect); Entamoeba histolytica Not Detected (Not Detect); Enteroaggregative E.coli Not Detected (Not Detect); Enteropathogenic E.coli Not Detected (Not Detect); Enterotoxigenic E.coli It/st Not Detected (Not Detect); Giardia lamblia Not Detected (Not Detect); Norovirus GI/GII Not Detected (Not Detect); Plesiomonsa shigelloides Not Detected (Not Detect); Rotavirus A Not Detected (Not Detect); Salmonella Not Detected (Not Detect); Sapovirus Not Detected (Not Detect); Shiga-like toxin-prod E.coli Not Detected (Not Detect); Shigella/Enteroinvasive E.coli Not Detected (Not Detect); Vibrio Not Detected (Not Detect); Vibrio cholerae Not Detected (Not Detect); Yersinia enterocolitica Not Detected (Not Detect)
--- NOTE | 2020-01-03 14:43 | PC.NURSE ---
Day Shift- Pt reported having light pink color on the toilet paper after voiding, pt had wiped to her rectal area, no BM at this time. At 0900, SIGNAL AND COMMUNICATIONS MAINTAINER reported pt having bright red blood in toilet water after having stool. after lunch pt reported feeling generally weak/tired, sitting most of shift in chair. Ambulates to BR using walker with 1PA. Denies light headedness or dizziness. Spoke with Dr. Nieto several times throughout shift and updates given as noted above. Will continue to monitor H&H, vital signs, and any ill symptoms from pt. Pt started Bowel prep Golytely po at 1400. Pt aware of plan for clear liquids until midnight, bowel prep and colonoscopy with Katarzyna Hernandez tomorrow Monday and unknown time per Dr. Nieto.
[2020-01-03] MEDS: ATORVASTATIN 20 MG TABLET 10 MG PO (20:34)
[2020-01-04] VITALS (12 sets, daily range): BP systolic 117–170; BP diastolic 54–69; PULSE 67–91; RESP 15–19; TEMP 36.2–36.9; O2SAT 94–100; BMI 47.7
[2020-01-04] MEDS: SODIUM CHLORIDE 0.9% 1,000 ML 75 ML IV (00:06)
[2020-01-04] MEDS: PEG3350/SOD SULF,BICARB,CL/KCL 4,000 ML SOLUTION 2000 ML PO (00:34)
[2020-01-04 05:04] LABS: Add Manual Diff / Slide Review NO; Basophils Absolute Auto 0 /uL (0-100); Basophils Percent Auto 0.3 % (0-2); Eosinophils Absolute Auto 200 /uL (0-450); Hematocrit 30.8 % (36-46); Hemoglobin 10.1 g/dL (12.0-16.0); Lymphocytes Absolute Auto 1000 /uL (1100-4500); Lymphocytes Percent Auto 12.3 % (25-40); Mean Corpuscular HGB Conc 32.9 % (30-36); Mean Corpuscular Hemoglobin 27.3 PG (26-34); Mean Corpuscular Volume 82.8 fL (80-100); Monocytes Absolute Auto 500 /uL (0-900); Neutrophils Absolute Auto 6200 /uL (1500-7000); Neutrophils Percent Auto 79.4 % (50-75); Platelet Count 267 X10^3/uL (150-400); Red Blood Cell Count 3.72 X10^6/uL (4.0-5.2); Red Cell Distribution Width 14.5 % (11.6-14.8); White Blood Cell Count 7.8 X10^3/uL (4.5-11.0)
[2020-01-04 05:19] LABS: Alanine Aminotransferase 11 IU/L (<35); Albumin 3.4 g/dL (3.5-5.0); Alkaline Phosphatase 91 U/L (38-126); Aspartate Aminotransferase 25 IU/L (14-36); BUN Creatinine Ratio 5.2 (6-22); Bilirubin Total 0.5 mg/dL (0.2-1.3); Blood Urea Nitrogen 3 mg/dL (7-17); Calcium 8.2 mg/dL (8.4-10.2); Carbon Dioxide 29 mmol/L (22-32); Chloride 105 mmol/L (98-107); Estimated Glomerular Filt Rate > 60.0 mL/min (>60); Globulin 3.3 g/dL (1.7-4.1); Glucose 111 mg/dL (80-110); HEMOLYSIS < 15 (0-50); Magnesium 1.6 mg/dL (1.6-2.3); Potassium 3.9 mmol/L (3.4-5.1); Sodium 134 mmol/L (137-145); Total Protein 6.7 g/dL (6.3-8.2)
--- NOTE | 2020-01-04 14:12 | PM.PN.1 ---
Subjective Subjective Date Patient Seen: 01/04/20 Interval history: Lexie Huber is a 74-year-old female with a past medical history significant for hypertension, paroxysmal atrial fibrillation on Eiquis, and diabetes mellitus type 2, non-insulin using, who presented to the ED with bright red blood per rectum x 4 days. The patient is resting in bedside chair comfortably. She has completed bowel prep for colonoscopy today which has been delayed until this evening due to an emergency surgical case. The patient reports fatigue today. She also reports some lightheadedness yesterday afternoon with bowel prep. She currently denies headache, chest pain, shortness of breath, lightheadedness or dizziness, abdominal pain (she does have chronic mild and intermittent right-sided abdominal pain due to previous ventral hernia), nausea, vomiting, fever, chills, or dysuria. She is voiding and eliminating without difficulty. She is up ambulating with assistance. Exam Vital Signs (past 8 hours): - 01/04/20 13:00 01/04/20 15:21 01/04/20 16:23 Temperature 97.8 F 97.8 F Pulse Rate 68 75 Respiratory Rate 17 15 Blood Pressure 139/58 L 150/68 H Pulse Oximetry 98 99 96 01/04/20 16:37 01/04/20 17:13 01/04/20 17:18 Temperature 97.5 F L Pulse Rate 91 H 82 79 Respiratory Rate 16 16 19 Blood Pressure 170/57 H 144/56 H 126/57 L Pulse Oximetry 94 100 100 01/04/20 17:23 01/04/20 17:46 Temperature 97.7 F Pulse Rate 80 75 Respiratory Rate 18 15 Blood Pressure 117/61 151/69 H Pulse Oximetry 100 100 Oxygen Delivery Method Room Air Oxygen Flow Rate 0 Narrative Exam Narrative: General: Elderly female acute distress, well-developed, well-nourished, appropriately interactive. HEENT: Normocephalic, atraumatic. External ears without defect. Pupils equal, round, and reactive to light. Anicteric sclerae, moist conjunctivae, and no lid lag. Oropharynx free of erythema and cobble stoning with moist mucosa. Neck: Supple with full range of motion. No lymphadenopathy or thyromegaly. Cardiovascular: Regular rate and rhythm without murmurs, rubs, or gallops appreciated. Pulmonary: Clear to auscultation bilaterally without crackles, wheezes, or rhonchi. Normal respiratory effort with no use of accessory muscles. Abdomen: Soft, obese, bowel sounds present, nontender, nondistended. Small ventral hernia. Extremities: No clubbing, cyanosis, or edema. Skin: Normal temperature, turgor, and texture; no rash, ulcers, or subcutaneous nodules appreciated. Neurological: Cranial nerves grossly intact. Psychiatric: Normal mood and affect. Alert and oriented to person, place, and time. Objective Labs Result Diagrams: 01/04/20 04:52 01/04/20 04:52 Labs: Laboratory Results - last 24 hr 01/04/20 01/04/20 04:52 04:52 WBC 7.8 RBC 3.72 L Hgb 10.1 L Hct 30.8 L MCV 82.8 MCH 27.3 MCHC 32.9 RDW 14.5 Plt Count 267 Neut % (Auto) 79.4 H Lymph % (Auto) 12.3 L [place] % (Auto) 6.0 Eos % (Auto) 2.0 Baso % (Auto) 0.3 Neut # (Auto) 6200 Lymph # (Auto) 1000 L [place] # (Auto) 500 Eos # (Auto) 200 Baso # (Auto) 0 Sodium 134 L Potassium 3.9 Chloride 105 Carbon Dioxide 29 BUN 3 L Creatinine 0.58 Estimated GFR > 60.0 BUN/Creatinine Ratio 5.2 L Glucose 111 H Calcium 8.2 L Magnesium 1.6 Total Bilirubin 0.5 AST 25 ALT 11 Alkaline Phosphatase 91 Total Protein 6.7 Albumin 3.4 L Globulin 3.3 Albumin/Globulin Ratio 1.0 Assessment & Plan Assessment & Plan narrative: Lexie Huber is a 74-year-old female with a past medical history significant for hypertension, paroxysmal atrial fibrillation on Eliquis, and diabetes mellitus type 2, non-insulin using, who presented to the ED with bright red blood per rectum x 4 days. 1. Acute lower GI bleed with acute blood loss anemia, present on admission. Active. -Patient presented with painless bright red bleeding per rectum x 4 days. -Initial hemoglobin 11.2. Hemoglobin trended down but stable at 10.1. Continue to monitor H&H daily. Transfusion goal hemoglobin < 7.0. -Held Eliquis. Continue to monitor closely on telemetry. -Consulted general surgery, Dr. Pedro, who recommended conservative management initially. Plan for colonoscopy later this evening with Dr. Hernandez and patient has completed bowel prep in is NPO. 2. Paroxysmal atrial fibrillation, chronic, present on admission. Stable. -Patient is currently in sinus rhythm with first-degree AV block. -Continue to monitor closely on telemetry. -Continue home flecainide 50 mg twice daily and metoprolol succinate 25 mg daily. 3. Hypertension, chronic, present on admission. Stable. -Continue home lisinopril 10 mg twice daily. 4. Diabetes type 2, non-insulin using, chronic, present on admission. Stable. -Hemoglobin A1c 6.5% indicative of fair glycemic control. -Held metformin. -Continue Q6H blood glucose checks while NPO and low-dose correctional scale insulin. -Continue heart healthy/carbohydrate consistent diet after colonoscopy. Code status: Full code VTE prophylaxis: Bilateral SCDs Disposition: Patient likely discharge home tomorrow morning. Quality VTE Deep Vein Thrombosis/Pulmonary Embolism Present on Admission: No
[2020-01-04] MEDS: METOPROLOL ER 25 MG TABLET PO (16:19)
--- NOTE | 2020-01-04 16:21 | PC.NURSE ---
TAKEN TO OR FOR COLONOSCOPY
[2020-01-04] MEDS: LACTATED RINGERS 1,000 ML 42 ML IV (16:40)
--- NOTE | 2020-01-04 17:11 | PM.OP.ENDO ---
Operative Date/Time/Diagnoses Date of procedure: 01/04/20 Time of procedure: 17:12 Pre-op diagnosis: GI bleed Post-op diagnosis: other (Internal hemorrhoids) Procedure & Clinicians Study performed: Colonoscopy Same procedure as scheduled: Yes Indications: 74-year-old woman on anticoagulation presented with a lower GI bleed. Hemodynamically stable Surgeon: Doyle Hernandez Procedure Notes SCOAP/Timeout: Performed Procedure in detail: Medications: Sedation provided by Anesthesia The history and physical was performed/updated and the patient is ASA class is 3E. The procedure was discussed in detail with the patient. Potential risks complications including infection, bleeding, missed diagnosis, perforation, need for surgery, and were explained. Their questions were answered and informed consent was obtained. Patient was brought to the procedure room and placed standard monitoring equipment. The patient's vital signs were monitored continuously throughout the entire procedure. Prior to starting time-out was performed. The ablation patient was placed in the left lateral recumbent position. Procedural sedation was administered. Examination began with a thorough inspection of the perianal area there was no evidence of fissures, fistulae, external hemorrhoids or cutaneous malignancy. The colonoscopy scope was then placed into the anal canal and was advanced to the cecum, which was identified by the ileocecal valve, the appendiceal orifice and the confluence of the taenia. The scope was then slowly withdrawn examining colon thoroughly in all directions, irrigating it of any residual stool. There was no evidence of active or old hemorrhage Sigmoid diverticulosis Inflamed grade 2 internal hemorrhoids The patient tolerated the procedure well. They will be discharged once criteria are met. The prep was of fair quality. The withdrawl time was 8 minutes. Scope withdrawal time: 8 Findings: internal hemorrhoids Specimen(s): none sent Complications: none Impression: Hemorrhoids Post-procedure Recommendations: High fiber diet and No ASA/NSAIDS Follow up: as needed Disposition: Acute Care
[2020-01-04] MEDS: ATORVASTATIN 20 MG TABLET 10 MG PO (20:41)
[2020-01-04] MEDS: FLECAINIDE 100 MG TABLET 50 MG PO (20:41)
[2020-01-04] MEDS: lisinopriL 10 MG TABLET PO (20:41)
[2020-01-04] MEDS: SODIUM CHLORIDE 0.9% FLUSH 10 ML IV (20:43)
[2020-01-05 05:44] VITALS: BP 133/49; PULSE 72; RESP 16; TEMP 36.1; O2SAT 99
[2020-01-05 07:48] VITALS: BP 130/53; PULSE 68; RESP 17; TEMP 36.5; O2SAT 97
[2020-01-05] MEDS: FLECAINIDE 100 MG TABLET 50 MG PO (08:14)
[2020-01-05] MEDS: SODIUM CHLORIDE 0.9% FLUSH 10 ML IV (08:15)
[2020-01-05] MEDS: METOPROLOL ER 25 MG TABLET PO (08:15)
[2020-01-05] MEDS: lisinopriL 10 MG TABLET PO (08:15)
--- NOTE | 2020-01-05 08:18 | PM.DS.1 ---
History of Present Illness History of Present Illness Date Patient Seen: 01/02/20 Chief complaint: Bleeding from rectum x4 days Narrative: Written by Minda ESTRELLA: Lexie Huber is a 74 y.o. female with atrial fibrillation anticoagulated with apixaban, history of diverticulitis, history of endometrial cancer, and diabetes type 2 presented with a several day history bloody stool. 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 She denies having fever sweats or chills, shortness of breath, she has complained of abdominal cramping and has chronic ventral hernias which also contribute to the cramping. She denies dysuria or constipation. She has a history of chronic right leg tenosynovitis and wears a walking boot. Approximately 14 months ago she underwent a colonoscopy by Dr. Hernandez where she was found to have large polyps and diverticulitis. In the emergency department they typed and screened her and she was seen by General surgery. They did not feel that she would have had repeated large bleeding polyps. They would like for her to be observed and if she does continue to bleed they would want have her go through a bowel prep on Monday and undergo a repeat colonoscopy on Monday. Patient is afebrile, blood pressure 144/65, heart rate 58, respiratory rate 18, oxygen saturation of 97% on room air, she weighs 111.9 kg with a BMI of 40.2. Her hemoglobin and hematocrit are 11.2 and 34.1 which is currently her baseline, she does have up slight left shift with a neutrophil count of 9200, PT is 16.1, INR 1.4, her APTT is 46, sodium 134, rest of her chemistries are within normal limits, glucose is 121, A1c is 6.5, lactate was normal, COVID PCR was negative and she has a blood type O positive. Discharge Providers Provider Date of admission: 01/02/20 15:15 Discharge Date: 01/06/20 Primary care physician: Daniel Bob MD Consults: 01/02/20 16:13 Consult After Hours PICC Line RN Routine Comment: 01/02/20 20:39 Consult to Physician Routine Comment: Consulting Provider: Weigle,Kay Reason for consultation: GI bleeding Has provider been notified: Yes 01/05/20 10:13 Consult to Physical Therapy Evaluate & Treat Comment: Physician Instructions: Evaluate and Treat Discharge provider: Angelica Nieto DO Summary Hospital Course Discharge Diagnosis: 1. Acute lower GI bleed with acute blood loss anemia, present on admission. Resolved. 2. Paroxysmal atrial fibrillation, chronic, present on admission. Stable. 3. Hypertension, chronic, present on admission. Stable. 4. Diabetes type 2, non-insulin using, chronic, present on admission. Stable. Hospital Course: Lexie Huber is a 74-year-old female with a past medical history significant for hypertension, paroxysmal atrial fibrillation on Eliquis, and diabetes mellitus type 2, non-insulin using, who presented to the ED with bright red blood per rectum x 4 days. 1. Acute lower GI bleed with acute blood loss anemia, present on admission. Resolved. -Patient presented with painless bright red bleeding per rectum x 4 days. -Initial hemoglobin 11.2. Hemoglobin trended down but stable at 10.1. Continued to monitor H&H daily. Transfusion goal hemoglobin < 7.0. -Consulted general surgery, Dr. Hernandez, who performed colonoscopy which was unremarkable other than inflamed hemorrhoids which were felt to be the source of bleeding. Discharged on hydrocortisone suppository twice daily for 5 days. Of note, patient had mild bleeding with initial suppository. Held Eliquis and instructed patient to follow up with PCP and repeat blood counts prior to restarting Eliquis. 2. Paroxysmal atrial fibrillation, chronic, present on admission. Stable. -Patient is currently in sinus rhythm with first-degree AV block. -Continued to monitor closely on telemetry. -Continued home flecainide 50 mg twice daily and metoprolol succinate 25 mg daily. -Held Eliquis as above. 3. Hypertension, chronic, present on admission. Stable. -Continued home lisinopril 10 mg twice daily. 4. Diabetes type 2, non-insulin using, chronic, present on admission. Stable. -Hemoglobin A1c 6.5% indicative of excellent glycemic control. -Held metformin during hospitalization and restarted at discharge. -Continued ACHS blood glucose checks and low-dose correctional scale insulin. -Continued heart healthy/carbohydrate consistent diet. Exam Vital Signs (past 8 hours): Oxygen Delivery Method Room Air Oxygen Flow Rate 0 Narrative Exam Narrative: General: Elderly female acute distress, well-developed, well-nourished, appropriately interactive. HEENT: Normocephalic, atraumatic. External ears without defect. Pupils equal, round, and reactive to light. Anicteric sclerae, moist conjunctivae, and no lid lag. Oropharynx free of erythema and cobble stoning with moist mucosa. Neck: Supple with full range of motion. No lymphadenopathy or thyromegaly. Cardiovascular: Regular rate and rhythm without murmurs, rubs, or gallops appreciated. Pulmonary: Clear to auscultation bilaterally without crackles, wheezes, or rhonchi. Normal respiratory effort with no use of accessory muscles. Abdomen: Soft, obese, bowel sounds present, nontender, nondistended. Small ventral hernia. Extremities: No clubbing, cyanosis, or edema. Skin: Normal temperature, turgor, and texture; no rash, ulcers, or subcutaneous nodules appreciated. Neurological: Cranial nerves grossly intact. Psychiatric: Normal mood and affect. Alert and oriented to person, place, and time. Objective Labs Result Diagrams: 01/04/20 04:52 01/04/20 04:52 Discharge Plan Discharge Plan Patient Disposition: Home Provider Discharge Comment: You are being discharged home. You were found to have inflamed hemorrhoids on your colonoscopy which are likely your source of bleeding. You have been prescribed hydrocortisone suppository twice daily for 5 days to treat your inflamed hemorrhoids. Please hold your Eliquis until you're finished with your suppositories and able to follow-up with primary care provider. Please follow-up with your primary care provider, MUKESH Anderson, in the next 1 week regarding your hospitalization and repeat lab work to check your blood counts. Discharge orders & Medications Prescriptions: New hydrocortisone acetate [Anucort-HC] 25 mg Suppository 25 mg WI BID Qty: 10 RF: 0 Continued atorvastatin 10 mg tablet 10 mg PO DAILY RF: 0 cholecalciferol (vitamin D3) 1,000 unit capsule 1,000 unit PO DAILY RF: 0 flecainide 100 mg tablet 50 mg PO Q12H RF: 0 metformin [Glucophage XR] 500 mg tablet extended release 24 hr 1,000 mg PO BID RF: 0 lidocaine [Lidoderm] 5 % adhesive patch,medicated 3 patch TOP DAILY RF: 0 magnesium oxide 500 mg capsule 1,000 mg PO TID RF: 0 metoprolol succinate 50 mg tablet extended release 24 hr 25 mg PO DAILY RF: 0 metronidazole [Metrogel] 1 % gel 1 applictn TOP DAILY RF: 0 vitamin F53-lxldt acid 1,000-400 mcg Lozenge 1 giancarlo SUBLINGUAL DAILY RF: 0 lisinopril 10 mg tablet 10 mg BID RF: 0 Discontinued apixaban 5 mg tablet 5 mg PO BID RF: 0 Follow up/Referrals: Shey Anderson PA-C [Non-Staff] - 1 Week Diet/Activity/Treatments Diet: Low-fat, Low-sodium and Low-cholesterol Activity: Activity as tolerated with walker and boot Visit Report/Discharge Packet Instructions: DI for Hemorrhoids, DI for Hemarthrosis Discharge Data Primary Care Provider: Daniel Bob VTE Deep Vein Thrombosis/Pulmonary Embolism Present on Admission: No
[2020-01-05] MEDS: APIXABAN 5 MG TABLET PO (09:57)
[2020-01-05] MEDS: HYDROCORTISONE 25 MG SUPP PR (10:26)
[2020-01-05 12:02] VITALS: BP 145/70; PULSE 73; RESP 15; TEMP 36.6; O2SAT 98
--- NOTE | 2020-01-05 13:32 | PT.IIE ---
Current Diagnoses Type 2 diabetes mellitus without complications (01/02/20) Unspecified atrial fibrillation (01/02/20) Diverticulosis of intestine, part unspecified, without perforation or abscess without bleeding (01/02/20) Gastrointestinal hemorrhage, unspecified (01/02/20) FDC (current) use of anticoagulants (01/02/20) Surgery Performed Operation Date: 01/04/20 09:00 <No data on this case meets the specified criteria> Operation Date: 01/04/20 10:15 <No data on this case meets the specified criteria> Operation Date: 01/04/20 13:45 Actual Procedures p Colonoscopy(Not Applicable) - Doyle Hernandez MD Surgical History (Last Reviewed 01/02/20 @ 23:52 by SAMEER Turner) History of cholecystectomy History of hysterectomy for cancer Medical History (Last Reviewed 01/02/20 @ 23:52 by SAMEER Turner) Atrial fibrillation Diabetes Diverticulosis History of cardioversion History of endometrial cancer Physical Therapy Inpatient Evaluation/Re-Eval M1 PT/OT-IP Prior Functional Status Start: 01/05/20 12:19 Freq: NEEDED Status: Active Protocol: Document 01/05/20 13:05 AW (Rec: 01/05/20 13:18 AW [id number]) Medical Review Prior Functional Status Medical History Reviewed Yes Communication WNL. Pt is an effective verbal communicator. Mobility and Gait Pt uses a walking boot on the RLE due to chronic tenosynovitis. Otherwise, she uses no assistive device for household mobility. Pt has been using the walking boot for 14 months; she uses a custom orthotic and a heel lift in the other shoe. She denies any falls in that time. She leaves the home only for doctor's appointments. Activities of Daily Living and IADL's Pt's assists to don the walking boot. He also provides SBA for showers. Pt is otherwise independent with ADL's Social History Household Members spouse Living Arrangements House Number of Floors (Floors) One Floor Number of Stairs To Enter/Railing? Level entrance Home Environment Standard Height Toilet,Walk in Shower Home Equipment Front Wheel Walker,Straight Cane,Shower Seat without Backrest,Combination Worker,Grab Bars Near Toilet Additional Social History Comment Pt lives with her spouse, Jaime, who is available and able to assist as needed. She also has two sons who live nearby in [place]. M2 PT-IP Current Condition Start: 01/05/20 12:19 Freq: NEEDED Status: Active Protocol: Document 01/05/20 13:05 AW (Rec: 01/05/20 13:32 AW [id number]) Physical Therapy Current Condition Current Condition Evaluation Date 01/05/20 Treatment Diagnosis acute lower GI bleed; chronic RLE tenosynovitis; difficulty in walking Onset Date 01/02/20 M3 PT-IP Subjective Start: 01/05/20 12:19 Freq: NEEDED Status: Active Protocol: Document 01/05/20 13:05 AW (Rec: 01/05/20 13:32 AW [id number]) Subjective Physical Therapy Visit Type Type Initial Evaluation Visit Start Time 12:23 Visit Stop Time 12:53 Total Visit Minutes 30 Notes Latest hgb/hct was 10.1/30.8. Number of SLEEVE SEWER Visits 0 Physical Therapy Visit Comments Patient Comments Pt is willing to participate with PT Patient Goals Return home and continue crafting. Therapy Pain Assessment Pain When Pain Assessed At Rest Pain Present Pain Present Pain Reported Location Headache Scale Used not quantified M4 PT-IP Mobility and Gait Start: 01/05/20 12:19 Freq: NEEDED Status: Active Protocol: Document 01/05/20 13:05 AW (Rec: 01/05/20 13:32 AW [id number]) PT-Transfer Assessment Sit to and From Stand Sit to and from Stand Standby Assistance,Use of Upper Extremities Equipment Transfer Assistive Device None,Gait Belt Orthotic/Prosthetic Devices or Brace: Yes Transfers Transfer Destination Chair,Toilet Transfer Technique pt ambulated without AD Transfer Ability Level of Assist Contact Guard Assistance Comments Mobility Comments Pt was sitting up in the chair as PT arrived. BP was 139/78. PT assisted the pt to don her walking boot on RLE and shoe with custom inserts on LLE. She stood from the chair SBA and ambulated to the toilet where she transferred to and from with CGA due to floor surface and unfamiliar surroundings. Pt then ambulated to the sink where she washed her hands without leaning on the countertop. She donned her face mask and proceeded to ambulate in the halls 220 feet SBA. On return to the room, pt transferred back to the chair with PT assist to doff her walking boot. Pt was left with call light and all needs within reach. Gait Assessment Gait Gait Assistance Required: Standby Assistance Distance (Feet) 220 Able to Maintain Weight Bearing Status Yes During Gait Assistive Devices Assistive Device None,Gait Belt Orthotic/Prosthetic Devices or Brace: Yes Gait Deviations General Gait Pattern Antalgic,Decreased Stride Length,Decreased Feet Clearance,Lateral Trunk Lean, Wide Based Gait Factors Limiting Gait Function Factors Limiting Gait Function Decreased Activity Tolerance, Decreased Sensation,Decreased Strength,Poor Balance, Respiratory Distress Comments Gait Comments Pt ambulated with exaggerated left lateral lean in left stance phase. She had (+) SOB but pt states this is consistent with her baseline at this level of exertion. Stair Climbing Assessment Comments Stair Climbing Comments Not assessed. No stairs at home. PT-Balance Assessment Sitting Balance and Reactions Static Sitting Balance Ability Good Dynamic Sitting Balance Ability Good Standing Balance and Reactions Static Standing Balance Ability Good Dynamic Standing Balance Ability Fair Device Used walking boot RLE M5 PT-IP Objective Assessments Start: 01/05/20 12:19 Freq: NEEDED Status: Active Protocol: Document 01/05/20 13:05 AW (Rec: 01/05/20 13:32 [id number]) Orientation Orientation/Cognition Level of Alertness Alert Orientation Name,Day of Week,Place, Situation Language Function Ability No Deficits Noted Safety Awareness Decreased Safety Awareness Memory Description No Deficits Noted Gross Range of Motion Lower Extremity ROM Assessment Right Impaired Impairments right ankle lacking dorsiflexion past neutral Strength Lower Extremity Strength Assessment Bilaterally Impaired Hip 4-/5 Knee 4-/5 Ankle R 3/5; L 4/5 Coordination Assessment Gross Coordination Gross Coordination WNL Sensation Assessment Sensation Light Touch Impaired Sensation Description Hyperesthesia Comments Sensation Comments BLE hypersensitive to all touch up to mid-rodriguez with right more affected than left Muscle Tone Muscle Tone WNL Yes M6 PT-IP Treatment Start: 01/05/20 12:19 Freq: NEEDED Status: Active Protocol: Document 01/05/20 13:05 AW (Rec: 01/05/20 13:32 AW [id number]) Physical Therapy Treatment Education Education Provided Safety Brace Education Donning,Flora,Patient Other Treatments Other Treatment Performed Provided education on role of PT and benefits of home health PT. M7 PT-IP Assessment and Plan Start: 01/05/20 12:19 Freq: NEEDED Status: Active Protocol: Document 01/05/20 13:05 AW (Rec: 01/05/20 13:32 AW [id number]) PT Summary Assessment and Plan Potential Rehabilitation Potential Good Status of Condition at Evaluation Stable Summary Impairments Pain,ROM,Strength,Balance, Sensation,Transfers,Gait, Activity Tolerance Assessment Summary Lexie is a 74 yo woman seen for PT evaluation on POD1 following colonoscopy for acute lower GI bleed. Pt wears a walking boot on her right leg for all mobility at baseline due to chronic tenosynovitis. She denies any falls in the 14 months she has used this device. Her provides assist to manage the walking boot but pt states she is otherwise independent with ADL's. On evaluation, pt required CGA for transfers due to unfamiliar po surface while wearing walking boot. Otherwise, she was SBA for all mobility. Gait was characterized by excessive leftward lean in left stance phase as well as wide base of support. She had shortness of breath with ~100 feet ambulation but states this is essentially her baseline. While pt is at or near her recent mobility baseline, she is certainly deconditioned and would benefit from home health PT. Discussed same with pt who denies need. Pt is safe for discharge to home with spouse assist. Goals Bed Mobility Goal Independent Transfer Goal Independent Gait Goal Independent Gait Distance 200 Days to Meet Goals 3 Frequency of Treatment Frequency Of Treatment Once a Day Treatment Plan Physical Therapy Treatment Plan Bed Mobility Training,Transfer Training,Gait Training, Therapeutic Exercise,Balance Retraining,Post Op Education, Discharge Planning,Hot or Cold Pack,Neuromuscular Re-ed Recommendations To Nursing Amount of Assist Needed Standby Assistance,1 Person Assist Discharge Recommendations PT Discharge Recommendations Home with Assistance,Home Health Transportation Needs at Discharge Private Vehicle
== END 2020-01-05 15:05 | disposition home or self-care (01) | DRG 394 ==
LOC: ED 13:38 → AC 15:59
PROVIDERS: Nurse Practitioner Family; Surgery; Admitting Provider Internal Medicine; Emergency Provider Emergency Medicine; PCP Family Medicine; Visit Provider Internal Medicine
PROC: 0DJD8ZZ Inspection of Lower Intestinal Tract, Via Natural or Artificial Opening Endoscopic (ICD-10-PCS; CPT 45378; principal; 2020-01-04 13:45)
DX: K64.8 Other hemorrhoids (principal); D62 Acute posthemorrhagic anemia; Z68.42 Body mass index [BMI] 45.0-49.9, adult; D68.32 Hemorrhagic disorder due to extrinsic circulating anticoagulants; I48.0 Paroxysmal atrial fibrillation; E11.9 Type 2 diabetes mellitus without complications; I10 Essential (primary) hypertension; Z79.01 Long term (current) use of anticoagulants; E66.01 Morbid (severe) obesity due to excess calories; Z85.89 Personal history of malignant neoplasm of other organs and systems; Z79.84 Long term (current) use of oral hypoglycemic drugs; Z11.59 Encounter for screening for other viral diseases; T45.525A Adverse effect of antithrombotic drugs, initial encounter
CPT/HCPCS: 36415; 36592; 45378; 80048; 80053; 82272; 82962; 83036; 83605; 83735; 85014; 85018; 85025; 85610; 85730; 86850; 86900; 86901; 87507; 87635; 90471; 90662; 93005; 97162; 99152; 99221; 99231; 99282; 99284

== ENCOUNTER → 2020-02-20 15:38 | Outpatient (CLI) | payer MEDICARE, OTHER, SELFPAY ==
[2020-01-02 16:06] VITALS: BMI 48.2
--- NOTE | 2020-02-20 15:41 | DI.ECHO.S_ITS ---
[facility]---------+ [facility] +---------+ : : [address] : : : : [id number] : : : : Phone: [phone]---------+ Echocardiogram Report + + :Name: SMILEY YAP Study Date: 02/20/2020 Height: 60 in : :[facility] Weight: 245 lb : : Gender: Female BSA: 2.0 m2 : :: 1945 Age: 74 yrs BP: 151/84 mmHg: :Reason For Study: [id number] : :Ordering Physician: SHANIQUE, : :GENIA Performed By: Angelina Tom : :Referring: GENIA BAY : + + Interpretation Summary Left ventricular systolic function appears normal with an estimated ejection fraction of 55 to 60% without any focal wall motion abnormality. Left ventricular volumes appear normal with mild concentric LVH that is slightly more prominent compared to the previous study. Diastolic function appears normal with probable normal filling pressures. The right ventricle remains normal and unchanged from the previous study. Right ventricular systolic pressure cannot be estimated but CVP is likely around 3 mmHg. Both atria are normal in size and both measure smaller compared to the previous study, particularly the right atrium. There is mild mitral regurgitation that is slightly more prominent compared to the previous study but no other significant valvular abnormality, and specifically the trivial tricuspid and pulmonic valve regurgitation is less prominent compared to the previous exam. Procedure: A two-dimensional transthoracic echocardiogram with color flow and Doppler was performed. The study quality was technically adequate. Comparison is made with the echocardiogram of 05/15/2017. The patient was in sinus rhythm with heart rates between 74-83 bpm during the exam. Left Ventricle: The left ventricle is normal in size. The estimated left ventricular end diastolic volume is 70 ml. There is mild concentric left ventricular hypertrophy. Left ventricular systolic function appears normal without focal wall motion abnormalities. The ejection fraction is estimated to be 55-60%. There may be a small apical diverticulum that appears unchanged from the previous study. Diastolic parameters suggest probable normal left ventricular diastolic function and normal filling pressures. Right Ventricle: The right ventricle is normal in size and function. This is unchanged compared to the previous study. Atria: Both atria are normal in size. This is smaller compared to the previous study. The interatrial septum grossly appears intact with no obvious evidence for an atrial septal defect. There is no Doppler evidence for an interatrial shunt. Mitral Valve: There is mild mitral annular calcification. The mitral valve leaflets are slightly calcified. There is mild mitral regurgitation. This is slightly more prominent compared to the previous study. Aortic Valve: The aortic valve is not well visualized. The aortic valve is grossly normal. The aortic valve is slightly calcified. The aortic valve opens well. There is no aortic valve stenosis. No aortic regurgitation is present. Tricuspid Valve: The tricuspid valve is normal in structure and function. There is trace tricuspid regurgitation. This is less prominent compared to the previous study. Pulmonary artery pressures cannot be estimated because of the lack of a measurable TR jet velocity but the IVC suggests a CVP of around 3 mmHg. Pulmonic Valve: The pulmonic valve leaflets are thin and pliable; valve motion is normal. There is no pulmonic valvular regurgitation. This is less prominent compared to the previous study. Great Vessels: The aortic root is normal size. The dimensions of the ascending aorta are normal. The IVC is of normal diameter and collapses greater than 50% with a sniff. This suggests a low right atrial pressure of 3 mm Hg. Pericardium/ Pleura There is no pericardial effusion. There is no pleural effusion. MMode/2D Measurements & Calculations LVIDd: 4.4 cm LVOT diam: 2.1 cm LVIDs: 2.9 cm Ao root diam: 2.8 cm FS: 32.9 % asc Aorta Diam: 2.9 cm EPSS: 0.66 cm Ao Arch Diam (Prox Trans): 3.2 cm IVSd: 1.1 cm LVPWd: 1.1 cm LV momin. diameter/BSA (cm/m^2): 2.1 LV sys. diameter/BSA (cm/m^2): 1.4 LA A2 area: 17.9 cm2 RA long axis: 4.6 cm LA A4 area: 16.0 cm2 RA area: 13.8 cm2 LA length (vol): 4.6 cm RA vol: 35.3 ml LA vol: 53.2 ml RA : 17.3 ml/m2 LA vol index: 26.2 ml/m2 IVC diam: 1.6 cm RVD1 (basal): 3.1 cm TAPSE: 2.2 cm Doppler Measurements & Calculations Ao V2 max: 131.6 cm/sec LVOT Max Randall: 89.9 cm/sec Ao V2 mean: 94.2 cm/sec LV V1 max P.2 mmHg Ao max P.9 mmHg LV V1 VTI: 19.4 cm Ao mean P.9 mmHg LYDIA(I,D): 2.3 cm2 Ao V2 VTI: 29.0 cm LYDIA(V,D): 2.3 cm2 sev ratio: 0.67 LYDIA indexed to BSA (cm^2/m^2): 1.1 MV E max randall: 82.7 cm/sec PA V2 max: 78.8 cm/sec MV A max randall: 67.7 cm/sec PA V2 mean: 54.8 cm/sec MV E/A: 1.2 PA mean P.3 mmHg Med Peak E' Randall: 5.7 cm/sec PA pr(Accel): 24.2 mmHg E/E' med: 14.6 Lat Peak E' Randall: 10.4 cm/sec E/E' lat: 8.0 E/e' average: 11.3 MV dec time: 0.19 sec SV(LVOT): 66.5 ml Reading Physician:06:36 PM
== END ==
PROVIDERS: PCP Family Medicine; Visit Provider Specialist
DX: I34.0 Nonrheumatic mitral (valve) insufficiency (principal); R06.00 Dyspnea, unspecified
CPT/HCPCS: 93306

== ENCOUNTER → 2021-03-15 13:19 | Outpatient (CLI) | payer OTHER, MEDICARE, SELFPAY ==
[2020-01-02 16:06] VITALS: BMI 48.2
--- NOTE | 2021-03-15 | DI.RAD.S_ITS ---
PROCEDURE: FL SHOULDER INJECTION MR/CT RT INDICATIONS: Stiffness in right shoulder COMPARISON: None. TECHNIQUE: The indications, alternatives, benefits, risks, and complications of the procedure were explained to the patient. Written informed consent was obtained and placed in the chart. The shoulder was examined fluoroscopically and a site for needle placement chosen for entry into the glenohumeral joint from an anterior approach. The skin was prepped and draped in a sterile fashion, and 1% lidocaine infiltrated from skin down to joint capsule. A spinal needle was inserted into the glenohumeral joint, and a small amount of lidocaine was injected to confirm intra-articular placement of the needle tip. This was followed by approximately 12 mL dilute solution of a gadolinium containing MR contrast agent. The needle was removed and a dressing was applied. The patient was given postprocedural instructions and sent to the MR suite for MR imaging. FINDINGS: A single fluoroscopic spot image demonstrates intra-articular location of injected iodinated contrast. IMPRESSION: Successful fluoroscopically guided administration of dilute Gadolinium solution into the shoulder joint for MR arthrogram. Dictated by: Ryland Mitchell M.D. on 03/15/2021 at 14:59 Approved by: Ryland Mitchell M.D. on 03/15/2021 at 15:00
--- NOTE | 2021-03-15 13:52 | DI.CT.S_ITS ---
PROCEDURE: CT UE RT WO CON INDICATIONS: Stiffness in right shoulder TECHNIQUE: After intra-articular injection of diluted Isovue contrast, 1 mm thick sections acquired from the acromioclavicular joint to the inferior scapula, with coronal and sagittal reformatting. COMPARISON: [facility], [place], XR SHOULDER 2+ VIEWS RIGHT, 02/22/2021, 11:21. FINDINGS: Image quality: Excellent. Bones: There is mild to moderate glenohumeral joint osteoarthritis with joint space narrowing, subchondral sclerosis and inferior marginal osteophyte formation. Expected postsurgical widening of acromioclavicular joint is seen. No fracture or dislocation. No suspicious intraosseous lesion. Visualized right upper ribs are intact. Soft tissues: There is articular surface irregularity involving distal supraspinatus at its insertion on the humeral head extending to musculotendinous junction. Focal area of full-thickness perforation involving anterior fibers of distal supraspinatus approximately 1.8 cm from its insertion on the humeral head is seen with contrast extending to subacromial subdeltoid bursa. This is best seen on series 4, image 46 and series 5, image 75. No gross intra-articular loose body is seen. No definite abnormal contrast extension in superior or inferior labrum is seen to suggest focal labral tear. IMPRESSION: 1. Tendinosis and mild to moderate articular surface partial-thickness tear involving distal supraspinatus extending to musculotendinous junction with area of focal full-thickness perforation involving anterior fibers of distal supraspinatus at its insertion on the humeral head and contrast extending to subacromial subdeltoid bursa. 2. Mild to moderate glenohumeral joint osteoarthritis. Expected postsurgical widening of acromioclavicular joint. No fracture or dislocation. No suspicious bony lesion. 3. No definite focal labral tear is seen. Dictated by: Azar Greenwood M.D. on 03/15/2021 at 15:25 Approved by: Azar Greenwood M.D. on 03/15/2021 at 15:33
== END ==
PROVIDERS: PCP Physician Assistant Medical; Referring Provider Orthopaedic Surgery; Visit Provider Orthopaedic Surgery
DX: M75.111 Incomplete rotator cuff tear or rupture of right shoulder, not specified as traumatic (principal); M19.011 Primary osteoarthritis, right shoulder; M25.611 Stiffness of right shoulder, not elsewhere classified
CPT/HCPCS: 23350; 73200; 77002

== ENCOUNTER → 2021-07-14 13:25 | Outpatient (CLI) | payer MEDICARE, OTHER, SELFPAY ==
[2020-01-02 16:06] VITALS: BMI 48.2
[2021-07-14 14:49] LABS: COVID19 -Nasal RAPID Negative (Negative)
--- NOTE | 2021-07-15 11:56 | PM.TREADMILL ---
Cardiac Stress Test Report Referral & Results Date Patient Seen: 07/15/21 Time Patient Seen: 11:56 Requesting provider: Jozef Ken Indication: Drug therapy Rest ECG: Sinus rhythm Procedure Note: After Lexiscan injection had minimal dyspnea, no chest discomfort No significant ST changes after Lexiscan injection No ectopy Impression: Normal Lexiscan stress test Nuclear images pending Please note: Actual ECG tracings can be found in the PACS system.
--- NOTE | 2021-07-15 20:22 | DI.NM.S_ITS ---
DATE OF SERVICE: 07/14/2021 PROCEDURE PERFORMED: Pharmacologic vasodilator stress and rest myocardial perfusion imaging with gating to assess ejection fraction and regional wall motion. ORDERING PROVIDER: Dr. Jozef Ken. INDICATIONS: The patient is a 75-year-old morbidly obese female with paroxysmal atrial fibrillation, exertional dyspnea, and atypical chest pain. CARDIAC STRESS: Per protocol, 0.4 mg of regadenoson was infused with a normal hemodynamic response. She had no chest discomfort and only minimal dyspnea. Her resting ECG shows sinus rhythm with normal ST segments. With stress, there were no significant ST-segment shifts. There were rare PVCs, but no other arrhythmias. Per protocol, 27.6 millicuries of technetium-99m Myoview was injected and she was imaged 20 minutes later using a gated SPECT acquisition protocol. The day prior, while at rest, she had been injected with 24.1 millicurie of technetium- 99m Myoview and was again imaged 20 minutes later using a gated SPECT acquisition protocol. FINDINGS: 1. Raw data: There is fairly poor tracer uptake due to the patient's body habitus with prominent breast shadows that clearly produce significant attenuation artifact and the patient was unable to lie prone. The lung/heart ratio was normal at 0.38 with a normal TID ratio of 1.03. 2. Quantitated gated SPECT: Post-stress ejection fraction is estimated at 82% without any focal wall motion abnormality and specifically the inferior wall has normal contractility. The resting ejection fraction is 83% with a normal resting end-diastolic volume of 77 mL. 3. Myocardial perfusion imaging: Post-stress supine images show a moderate perfusion defect throughout the entire inferior wall from apex to base in a pattern that would be consistent with diaphragmatic attenuation. Unfortunately, the patient was unable to lie prone and therefore no prone images are available to assess for diaphragmatic attenuation. The resting images essentially show an identical perfusion pattern without any obvious areas of significant improvement. IMPRESSION: 1. Probable normal myocardial perfusion study. 2. Fixed inferior wall perfusion defect that most likely reflects diaphragmatic attenuation artifact, given the absence of any wall motion abnormality in this area but there is no compelling evidence for any significant myocardial ischemia or previous myocardial infarction. 3. Normal left ventricular systolic function without any focal wall motion abnormality. 4. No angina or ECG evidence of ischemia with pharmacologic vasodilator stress. 5. Compared to the previous myocardial perfusion study of 08/24/2016, the inferior defect is more prominent on today's study but was present previously and was felt to again reflect diaphragmatic attenuation artifact. The previous ejection fraction was 64% with an end-diastolic volume of 80 mL, suggesting the absence of any significant change since the prior study. Lexie Huber - Jasmyne/patricia doc#: [id number]/job#: [id number] dd: 07/15/2021 13:12:00 dt: 07/15/2021 19:05:00 DICTATING /COPIES TO: Jozef Ken MD COPIES MNE: [id number];
== END ==
PROVIDERS: PCP Physician Assistant Medical; Referring Provider Specialist; Visit Provider Specialist
DX: I48.0 Paroxysmal atrial fibrillation (principal); Z13.6 Encounter for screening for cardiovascular disorders; R07.89 Other chest pain; R06.09 Other forms of dyspnea; E66.01 Morbid (severe) obesity due to excess calories; Z68.41 Body mass index [BMI] 40.0-44.9, adult; Z79.899 Other long term (current) drug therapy; Z20.822 Contact with and (suspected) exposure to COVID-19
CPT/HCPCS: 78452; 87635; 93017; A9502; J2785

== ENCOUNTER → 2022-06-27 13:27 | Outpatient (CLI) | payer MEDICARE, OTHER, SELFPAY ==
[2020-01-02 16:06] VITALS: BMI 48.2
[2022-06-27 14:05] LABS: BUN Creatinine Ratio 10.8 (6-22); Blood Urea Nitrogen 7 mg/dL (7-17); Calcium 9.4 mg/dL (8.4-10.2); Carbon Dioxide 25 mmol/L (22-32); Chloride 93 mmol/L (98-107); Estimated Glomerular Filt Rate > 60 mL/min (>60); Glucose 118 mg/dL (80-110); HEMOLYSIS < 15 (0-50); Magnesium 1.9 mg/dL (1.6-2.3); Potassium 4.5 mmol/L (3.4-5.1); Sodium 129 mmol/L (137-145)
== END ==
PROVIDERS: PCP Physician Assistant Medical; Referring Provider Physician Assistant Medical; Visit Provider Physician Assistant Medical
DX: I48.0 Paroxysmal atrial fibrillation (principal)
CPT/HCPCS: 36415; 80048; 83735